=== PATIENT | female | born 1950 | race Caucasian/White ===

== ENCOUNTER 2021-06-30 06:43 | Day surgery (SDC) | payer MEDICARE, SELFPAY ==
[2021-06-17 12:31] VITALS: BMI 26.6
[2021-06-30 10:15] VITALS: BP 115/67; PULSE 95; RESP 16; TEMP 36.6; O2SAT 97; BMI 25.7
--- NOTE | 2021-06-30 10:19 | PM.HPGS ---
History of Present Illness History of Present Illness Consent: Risks, benefits, and alternatives have been discussed and questions answered. Patient agrees to proceed with procedure. Chief complaint: hx of colon polyps Narrative: Magalie Irizarry is a 71 year old female here for colon cancer screening. She has a history of having had multiple polyps. She had 7 in 2014 and apparently 1 was not completely removed. Review of Systems Review of Systems: All systems reviewed & are unremarkable except as noted in HPI and below PMFSH Past Medical History Medical History Arthritis Osteoporosis Thyroid disorder Surgical History Surgical History Breast implant status 1979 Cataract 2020 Deficient knowledge of hysterectomy 1989 H/O section 1975 H/O foot surgery H/O wrist surgery 2015 Family History Family History Mother Carcinoma of colon Diabetes mellitus Heart disease Other Family history of arthritis Family history of cardiovascular disease Family history of malignant neoplasm Social History Social History Smoking status: Former smoker Second hand tobacco smoke exposure: No Alcohol intake: current Substance use: former Substance use type: does not use and marijuana Living arrangements: alone Gender identity (if verbalized by the patient): Female Spiritual care concerns: No Agree to blood products: Yes Meds Home Medications and Allergies Home Medications Medication Instructions Recorded Confirmed Type folic acid 1 mg tablet 1 mg PO DAILY 05/10/21 06/30/21 History hydroxychloroquine 200 mg tablet 200 mg PO BID 05/10/21 06/30/21 History meloxicam 15 mg tablet 15 mg PO DAILY 05/10/21 06/30/21 History methotrexate sodium 2.5 mg tablet 2.5 mg PO WEEKLY 05/10/21 06/30/21 History risedronate 150 mg tablet 150 mg PO MONTHLY 05/10/21 06/30/21 History sulfasalazine 500 mg tablet 1 g PO BID tablet 05/10/21 06/30/21 History allopurinol 300 mg tablet 300 mg PO DAILY #90 tablet 06/24/21 06/30/21 Rx levothyroxine 150 mcg tablet 150 mcg PO DAILY #90 tablet 06/24/21 06/30/21 Rx metformin 1,000 mg tablet 1,000 mg PO DAILY 90 Days #90 06/24/21 06/30/21 Rx tablet rosuvastatin 40 mg tablet 40 mg PO DAILY #90 tablet 06/24/21 06/30/21 Rx zolpidem 10 mg tablet 10 mg PO QPM 90 Days #90 tablet 06/24/21 06/30/21 Rx Allergies Allergy/AdvReac Type Severity Reaction Status Date / Time adhesive Allergy Rash Verified 06/30/21 10:14 Vital Signs Vital Signs - 24 hr 06/30/21 10:15 Temperature 36.6 C Pulse Rate 95 Respiratory Rate 16 Blood Pressure 115/67 Pulse Oximetry 97 Exam Resp: Auscultation: clear to auscultation bilaterally Cardio: Rate: regular rate Rhythm: regular rhythm GI: GI Palp: Yes Soft to palpation and No Tenderness to palpation present (GI) Assessment and Plan Assessment and plan (1) Colon cancer screening: Code(s): Z12.11 - Encounter for screening for malignant neoplasm of colon Status: Acute Assessment and Plan: Colonoscopy with possible biopsy or polypectomy or cautery or injection of substances.
[2021-06-30] MEDS: LACTATED RINGERS 1,000 ML 150 ML IV CONT (10:28)
[2021-06-30 10:30] LABS: Glucose Point of Care 106 mg/dl (65-105)
--- NOTE | 2021-06-30 10:30 | WPDANESEPPF ---
Anes - Initial Pre Proc Eval Procedure: Operation Date: 06/30/21 11:00 Proposed Procedures p Screening Colonoscopy - Kvng Del Rio MD Date/Time: 06/30/21 10:30 Surgeon: Kvng Del Rio MD Pre Op Diagnosis: hx of colon polyps Patient Data Age: 71 Gender: F Height: 1.52 m Weight: 59.8 kg Last Vital Signs Temp 36.6 C 06/30/21 10:15 Pulse 95 06/30/21 10:15 Resp 16 06/30/21 10:15 BP 115/67 06/30/21 10:15 Pulse Ox 97 06/30/21 10:15 Allergies Allergy/AdvReac Type Severity Reaction Status Date / Time adhesive Allergy Rash Verified 06/30/21 10:14 Home Medications Medication Instructions Recorded Confirmed Type folic acid 1 mg tablet 1 mg PO DAILY 05/10/21 06/30/21 History hydroxychloroquine 200 mg tablet 200 mg PO BID 05/10/21 06/30/21 History meloxicam 15 mg tablet 15 mg PO DAILY 05/10/21 06/30/21 History methotrexate sodium 2.5 mg tablet 2.5 mg PO WEEKLY 05/10/21 06/30/21 History risedronate 150 mg tablet 150 mg PO MONTHLY 05/10/21 06/30/21 History sulfasalazine 500 mg tablet 1 g PO BID tablet 05/10/21 06/30/21 History allopurinol 300 mg tablet 300 mg PO DAILY #90 tablet 06/24/21 06/30/21 Rx levothyroxine 150 mcg tablet 150 mcg PO DAILY #90 tablet 06/24/21 06/30/21 Rx metformin 1,000 mg tablet 1,000 mg PO DAILY 90 Days #90 06/24/21 06/30/21 Rx tablet rosuvastatin 40 mg tablet 40 mg PO DAILY #90 tablet 06/24/21 06/30/21 Rx zolpidem 10 mg tablet 10 mg PO QPM 90 Days #90 tablet 06/24/21 06/30/21 Rx Laboratory Tests 06/30/21 10:27 POC Capillary Glucose Pending Patient hx anesthesia problems: none Family hx anesthesia problems: none PMFSH Past Medical History Medical History Arthritis Osteoporosis Thyroid disorder Surgical History Surgical History Breast implant status 1979 Cataract 2020 Deficient knowledge of hysterectomy 1989 H/O section 1975 H/O foot surgery H/O wrist surgery 2015 Family History Family History Mother Carcinoma of colon Diabetes mellitus Heart disease Other Family history of arthritis Family history of cardiovascular disease Family history of malignant neoplasm Social History Social History Smoking status: Former smoker Second hand tobacco smoke exposure: No Alcohol intake: current Substance use: former Substance use type: does not use and marijuana Living arrangements: alone Gender identity (if verbalized by the patient): Female Spiritual care concerns: No Agree to blood products: Yes Anes - Eval Final PreProcedure Day of Procedure 06/30/21 10:30 Patient weight: overweight Heart: regular rate and rhythm Lungs: clear to auscultation Airway: Mallampati scale class II Neurological: alert and oriented Last oral intake: >/= 8 hours ASA classification: III Emergent: no Anesthetic plan: proceed Anesthesia type and monitoring: general GIVS and standard monitoring Informed Consent: The patient's anesthetic plan and its attendant risks and benefits were discussed with the patient/family/POA. Questions were solicited and answers provided to the satisfaction of the patient/family/POA.
[2021-06-30 11:24] VITALS: BP 107/52; PULSE 66; RESP 21; O2SAT 99
[2021-06-30 11:34] VITALS: BP 109/62; PULSE 68; RESP 21; O2SAT 99
[2021-06-30 11:44] VITALS: BP 111/57; PULSE 62; RESP 21; O2SAT 100
== END 2021-06-30 11:56 | disposition home or self-care (01) ==
PROVIDERS: PCP Family Medicine; Visit Provider Internal Medicine Gastroenterology
PROC: 0DJD8ZZ Inspection of Lower Intestinal Tract, Via Natural or Artificial Opening Endoscopic (ICD-10-PCS; CPT 45378; principal; 2021-06-30 11:00)
DX: Z12.11 Encounter for screening for malignant neoplasm of colon (principal); D12.3 Benign neoplasm of transverse colon; K63.5 Polyp of colon; E07.9 Disorder of thyroid, unspecified; M81.0 Age-related osteoporosis without current pathological fracture; Z87.891 Personal history of nicotine dependence; Z79.84 Long term (current) use of oral hypoglycemic drugs
CPT/HCPCS: 45385; 45380; 45381; 82948; 88305; J2704; J7120

== ENCOUNTER 2022-12-20 11:38 | Outpatient (CLI) | payer MEDICARE, SELFPAY ==
--- NOTE | ~2022-12-20 | XR_ITS ---
EXAM: XR hand LT min 3V, XR hand RT min 3V DATE: 12/20/2022 12:10 HISTORY: Rheumatoid arthritis involving both hands w negative rheumat . COMPARISON: Right wrist 04/17/2013, left hand 04/19/2011. FINDINGS: Decreased mineralization. Bilateral ulnar negative variance. Scattered joint space narrowi ng, subchondral sclerosis, and osteophytosis, severe in the right trapeziometacarpal joint and left t hird MCP joint, with milder changes involving the interphalangeal joints of the thumbs and fingers an d the bilateral triscaphe joints. No erosion. No subluxations. No periosteal change. No abnormal soft tissue calcification. IMPRESSION: Polyarticular osteoarthritic change. No definite radiographic evidence of inflammatory ar thropathy. Reviewed, dictated and finalized at location K. LUTION EXPERT IMPRESSION: Polyarticular osteoarthritic change. No definite radiographic evide nce of inflammatory arthropathy.
== END 2022-12-20 11:39 | disposition home or self-care (01) ==
LOC: ANHIMG 11:51
PROVIDERS: PCP Family Medicine; Visit Provider Physician Assistant Medical
DX: M06.041 Rheumatoid arthritis without rheumatoid factor, right hand (principal); M06.042 Rheumatoid arthritis without rheumatoid factor, left hand; Z79.899 Other long term (current) drug therapy; M19.041 Primary osteoarthritis, right hand; M19.042 Primary osteoarthritis, left hand
CPT/HCPCS: 73130

== ENCOUNTER 2022-12-28 11:05 | Outpatient (CLI) | payer MEDICARE, SELFPAY ==
--- NOTE | ~2022-12-28 | US_ITS ---
EXAMINATION: US soft tissue head and neck DATE: 12/28/2022 12:46 INDICATION: Right posterior neck mass. TECHNIQUE: Multiple grayscale and Doppler ultrasound images of the neck were obtained. COMPARISON: None FINDINGS: There is no abnormal mass or lymphadenopathy in the patient's area of concern in the right posterior neck. IMPRESSION: 1. No abnormality in the patient's area of concern in the right posterior neck. Reviewed, dictated and finalized at location A. ONAL INJURY SPECIALIST
== END 2022-12-28 11:06 | disposition home or self-care (01) ==
PROVIDERS: PCP Family Medicine; Visit Provider Physician Assistant Medical
DX: R22.1 Localized swelling, mass and lump, neck (principal)
CPT/HCPCS: 76536

== ENCOUNTER → 2023-01-23 13:38 | Outpatient (CLI) | payer MEDICARE, SELFPAY ==
--- NOTE | ~2023-01-23 | CT_ITS ---
EXAMINATION: CT soft tissue neck wo con DATE: 01/23/2023 13:52 INDICATION: Right neck mass. TECHNIQUE: Computed tomography (CT) of the neck was performed without intravenous contrast. Automated exposure control and iterative reconstruction technique were employed. The dose-length product was 3 67.47 mGy-cm. COMPARISON: Ultrasound 12/28/2022 FINDINGS: There is a 4 mm nodule in left lung upper lobe, likely benign. There are likely changes of ocular lens replacement surgeries. There are no pathologically enlarged lymph nodes. There are change s of right hemithyroidectomy. There are coarse calcifications in left thyroid lobe. There is severe c ervical spondylosis. There is severe osteoarthritis and hypertrophy of the right C3-C4 facet joint. T here is a skin marker overlying this area. IMPRESSION: 1. Severe hypertrophy of the right C3-C4 facet joint in the patient's area of concern. Reviewed, dictated and finalized at location A. ATOR SPECIALIST COMMUNICATIONS IMPRESSION: 1. Severe hypertrophy of the right C3-C4 facet joint in the patient's area of c oncern.
== END ==
PROVIDERS: PCP Family Medicine; Visit Provider Nurse Practitioner Family
DX: R22.0 Localized swelling, mass and lump, head (principal); R22.1 Localized swelling, mass and lump, neck
CPT/HCPCS: 70490

== ENCOUNTER → 2023-06-16 09:26 | Outpatient (CLI) | payer MEDICARE, BC, SELFPAY ==
--- NOTE | ~2023-06-16 | MR_ITS ---
EXAMINATION: MR lower leg RT wo con DATE: 06/16/2023 10:09 INDICATION: Right lower leg pain TECHNIQUE: Magnetic resonance imaging (MRI) of the right lower leg was performed without intravenous contrast. Sequences included axial, sagittal and coronal T1-weighted FSE and fluid sensitive FSE STIR . COMPARISON: Radiographs dated 06/01/2023 FINDINGS: Nondisplaced fracture potentially a stress fracture at the distal diaphysis of the right fibula with marrow edema surrounding the linear low signal intensity fracture line, small amount of periosteal re action along the anterior cortex and additional edema in the surrounding soft tissues. There is mild subarticular edema-like signal change associated with severe osteoarthritis in the medial compartment s of both knees. Bone marrow signal is otherwise normal throughout. Additional moderate osteoarthriti s at the right ankle with surrounding loose osteochondral bodies and hypertrophic osteophytes. Modera te fatty atrophy of the tibialis posterior muscle belly. Remaining musculature of the bilateral calve s appears normal and symmetric. IMPRESSION: 1. Nondisplaced distal diaphyseal fracture of the right fibula potentially a still incomplete stress fracture. 2. 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 3. Moderate fatty atrophy of the right tibialis posterior muscle, likely sequela of chronic insult. Reviewed, dictated and finalized at location A. IMPRESSION: 1. Nondisplaced distal diaphyseal fracture of the right fibula potentially a st ill incomplete stress fracture. 2. 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 3. Moderate fatty atrophy of the right tibialis posterior muscle, likely sequel a of chronic insult.
== END ==
PROVIDERS: PCP Family Medicine; Visit Provider Nurse Practitioner Family
DX: S89.301A Unspecified physeal fracture of lower end of right fibula, initial encounter for closed fracture (principal); M19.071 Primary osteoarthritis, right ankle and foot; M17.0 Bilateral primary osteoarthritis of knee; X58.XXXA Exposure to other specified factors, initial encounter
CPT/HCPCS: 73718

== ENCOUNTER 2023-09-27 02:46 | Day surgery (SDC) | payer MEDICARE, BC, SELFPAY ==
[2023-09-18 14:07] VITALS: BMI 23.1
--- NOTE | 2023-09-25 09:23 | SUR.PREOP ---
Patient called regarding upcoming procedure. Reviewed preop instructions, appointment times, and procedure prep.
[2023-09-27 11:04] VITALS: BP 120/88; PULSE 97; RESP 20; TEMP 36.3; O2SAT 99; BMI 22.3
[2023-09-27 11:20] LABS: Glucose Point of Care 59 mg/dl (65-105)
[2023-09-27] MEDS: LACTATED RINGERS 1,000 ML 150 ML IV CONT (11:22)
[2023-09-27] MEDS: DEXTROSE 50% 25 GM/50 ML SYRINGE IV PUSH (11:23)
--- NOTE | 2023-09-27 11:24 | PM.HPGS ---
History of Present Illness History of Present Illness Consent: Risks, benefits, and alternatives have been discussed and questions answered. Patient agrees to proceed with procedure. Chief complaint: Hx of colon polyp Narrative: Magalie Irizarry is a 73 year old female Here for colon cancer screening. A little over 2 years ago she had several adenomatous polyps removed. Review of Systems Review of Systems: All systems reviewed & are unremarkable except as noted in HPI and below PMFSH Past Medical History Medical History Acute sinusitis Arthritis Osteoporosis Thyroid disorder Surgical History Surgical History Breast implant status 1979 Cataract 2020 Deficient knowledge of hysterectomy 1989 H/O section 1975 H/O foot surgery H/O wrist surgery 2015 Family History Family History Mother Carcinoma of colon Diabetes mellitus Heart disease Hypertension Cerebrovascular accident Father Depression Other Family history of arthritis Family history of cardiovascular disease Family history of malignant neoplasm Social History Social History Smoking packs per day: 1 Smoking cigarettes per day: 20.0 Years smoked: 20 Smoking pack-years: 20.00 Smoking status: Former smoker Second hand tobacco smoke exposure: No Alcohol intake: never Substance use: never Substance use type: does not use Living arrangements: with family Occupation/Education: retired Gender identity (if verbalized by the patient): Female Spiritual care concerns: No Agree to blood products: Yes Meds Home Medications and Allergies Home Medications Medication Instructions Recorded Confirmed Type folic acid 1 mg tablet 1 mg PO DAILY 05/10/21 09/18/23 History hydroxychloroquine 200 mg tablet 200 mg PO BID 05/10/21 09/18/23 History meloxicam 15 mg tablet 15 mg PO DAILY 05/10/21 09/18/23 History methotrexate sodium 2.5 mg tablet 2.5 mg PO WEEKLY 05/10/21 09/18/23 History risedronate 150 mg tablet 150 mg PO MONTHLY 05/10/21 09/18/23 History allopurinol 300 mg tablet 300 mg PO DAILY #90 tabs 01/12/23 09/18/23 Rx metformin 1,000 mg tablet 500 mg PO DAILY #45 tabs 01/12/23 09/18/23 Rx levothyroxine 112 mcg tablet 112 mcg PO DAILY #90 tabs 08/15/23 09/18/23 Rx rosuvastatin 40 mg tablet (Crestor) 40 mg PO DAILY #90 tabs 08/31/23 09/18/23 Rx zolpidem 10 mg tablet 10 mg PO QHS PRN insomnia #90 tabs 08/31/23 09/18/23 Rx benzonatate 100 mg capsule 100 mg PO TID PRN cough #30 caps 09/20/23 09/27/23 Rx doxycycline hyclate 100 mg tablet 100 mg PO BID #20 tabs 09/20/23 09/27/23 Rx methylprednisolone 4 mg tablets in See Rx Instructions PO PER PKG DIR 09/20/23 09/20/23 Rx a dose pack (Medrol (Erlin)) #21 ea Allergies Allergy/AdvReac Type Severity Reaction Status Date / Time adhesive Allergy Rash Verified 09/27/23 11:02 Vital Signs Vital Signs - 24 hr 09/27/23 11:04 Temperature 36.3 C L Pulse Rate 97 Respiratory Rate 20 Blood Pressure 120/88 Pulse Oximetry 99 Oxygen Delivery Room Air Exam Const: General: alert Orientation/consciousness: patient oriented x3 Resp: Auscultation: clear to auscultation bilaterally Cardio: Rhythm: regular rhythm GI: GI Palp: Yes Soft to palpation and No Tenderness to palpation present (GI) Neuro: General: patient oriented x3 Assessment and Plan Assessment and plan (1) Colon cancer screening: Code(s): Z12.11 - Encounter for screening for malignant neoplasm of colon Status: Acute Assessment and Plan: Colonoscopy with possible biopsy or polypectomy or cautery or injection of substances.
--- NOTE | 2023-09-27 11:28 | WPDANESEPPF ---
Anes - Initial Pre Proc Eval Procedure: Operation Date: 09/27/23 13:00 Proposed Procedures p Colonoscopy - Kvng Del Rio MD Date/Time: 09/27/23 11:28 Surgeon: Kvng Del Rio MD Pre Op Diagnosis: Hx of colon polyp Patient Data Age: 73 Gender: F Height: 1.5 m Weight: 50.2 kg Last Vital Signs Temp 97.3 F L 09/27/23 11:04 Pulse 97 09/27/23 11:04 Resp 20 09/27/23 11:04 BP 120/88 09/27/23 11:04 Pulse Ox 99 09/27/23 11:04 O2 Del Method Room Air 09/27/23 11:04 Allergies Allergy/AdvReac Type Severity Reaction Status Date / Time adhesive Allergy Rash Verified 09/27/23 11:02 Home Medications Medication Instructions Recorded Confirmed Type folic acid 1 mg tablet 1 mg PO DAILY 05/10/21 09/18/23 History hydroxychloroquine 200 mg tablet 200 mg PO BID 05/10/21 09/18/23 History meloxicam 15 mg tablet 15 mg PO DAILY 05/10/21 09/18/23 History methotrexate sodium 2.5 mg tablet 2.5 mg PO WEEKLY 05/10/21 09/18/23 History risedronate 150 mg tablet 150 mg PO MONTHLY 05/10/21 09/18/23 History allopurinol 300 mg tablet 300 mg PO DAILY #90 tabs 01/12/23 09/18/23 Rx metformin 1,000 mg tablet 500 mg PO DAILY #45 tabs 01/12/23 09/18/23 Rx levothyroxine 112 mcg tablet 112 mcg PO DAILY #90 tabs 08/15/23 09/18/23 Rx rosuvastatin 40 mg tablet (Crestor) 40 mg PO DAILY #90 tabs 08/31/23 09/18/23 Rx zolpidem 10 mg tablet 10 mg PO QHS PRN insomnia #90 tabs 08/31/23 09/18/23 Rx benzonatate 100 mg capsule 100 mg PO TID PRN cough #30 caps 09/20/23 09/27/23 Rx doxycycline hyclate 100 mg tablet 100 mg PO BID #20 tabs 09/20/23 09/27/23 Rx methylprednisolone 4 mg tablets in See Rx Instructions PO PER PKG DIR 09/20/23 09/20/23 Rx a dose pack (Medrol (Erlin)) #21 ea Laboratory Tests 09/27/23 11:16 POC Capillary Glucose 59 L* mg/dl (65-105) Patient hx anesthesia problems: none Family hx anesthesia problems: none Results Review: All pre-operative results and documents have been reviewed as part of the pre-operative evaluation. [facility] Past Medical History Medical History Acute sinusitis Arthritis Osteoporosis Thyroid disorder Surgical History Surgical History Breast implant status 1979 Cataract 2020 Deficient knowledge of hysterectomy 1989 H/O section 1975 H/O foot surgery H/O wrist surgery 2015 Family History Family History Mother Carcinoma of colon Diabetes mellitus Heart disease Hypertension Cerebrovascular accident Father Depression Other Family history of arthritis Family history of cardiovascular disease Family history of malignant neoplasm Social History Social History Smoking packs per day: 1 Smoking cigarettes per day: 20.0 Years smoked: 20 Smoking pack-years: 20.00 Smoking status: Former smoker Second hand tobacco smoke exposure: No Alcohol intake: never Substance use: never Substance use type: does not use Living arrangements: with family Occupation/Education: retired Gender identity (if verbalized by the patient): Female Spiritual care concerns: No Agree to blood products: Yes Anes - Eval Final PreProcedure Day of Procedure 09/27/23 11:28 Patient weight: normal Heart: regular rate and rhythm Lungs: clear to auscultation Airway: Mallampati scale class II Neurological: alert and oriented Last oral intake: >/= 8 hours ASA classification: III Emergent: no Anesthetic plan: proceed Anesthesia type and monitoring: general GIVS and standard monitoring Results Review: All pre-operative results and documents have been reviewed as part of the pre-operative evaluation. Informed Consent: The patient's anesthetic plan and its attendant risks and benefits were discussed with the patient/family/POA. Qu
--- NOTE | 2023-09-27 12:00 | SUR.OPER ---
1200: REPEAT BLOOD SUGAR 132
--- NOTE | 2023-09-27 12:03 | SUR.PREOP ---
1117-pt blood sugar reading 59. pt asymptomatic. MD Saleh notified. new orders received and given. will reasses.
[2023-09-27 12:05] LABS: Glucose Point of Care 132 mg/dl (65-105)
[2023-09-27 12:10] VITALS: BP 96/56; PULSE 74; RESP 23; O2SAT 96
[2023-09-27 12:20] VITALS: BP 104/61; PULSE 60; RESP 17; O2SAT 100
[2023-09-27 12:30] VITALS: BP 125/66; PULSE 53; RESP 15; O2SAT 100
== END 2023-09-27 12:42 | disposition home or self-care (01) ==
PROVIDERS: PCP Family Medicine; Visit Provider Internal Medicine Gastroenterology
PROC: 0DJD8ZZ Inspection of Lower Intestinal Tract, Via Natural or Artificial Opening Endoscopic (ICD-10-PCS; CPT 45378; principal; 2023-09-27 13:00)
DX: Z12.11 Encounter for screening for malignant neoplasm of colon (principal); K64.8 Other hemorrhoids; K57.30 Diverticulosis of large intestine without perforation or abscess without bleeding; Z86.010 Personal history of colon polyps; M81.0 Age-related osteoporosis without current pathological fracture; E07.9 Disorder of thyroid, unspecified; Z87.891 Personal history of nicotine dependence; Z79.84 Long term (current) use of oral hypoglycemic drugs
CPT/HCPCS: G0105; 82948; J2704; J7120

== ENCOUNTER → 2023-11-02 13:08 | Outpatient (CLI) | payer MEDICARE, BC, SELFPAY ==
--- NOTE | ~2023-11-02 | MM_ITS ---
EXAMINATION: MM scrn fili implant BI w yovani HISTORY: Screening mammogram TECHNIQUE: Craniocaudal and mediolateral oblique 3-D tomosynthesis images with implant displacement a nd synthetic 2-D images were generated. Craniocaudal and mediolateral oblique views of the breasts wi thout implant displacement were obtained using full field digital mammography. CAD analysis was submi tted and interpreted. COMPARISON: No prior mammogram is available for comparison at this institution. BREAST PARENCHYMAL COMPOSITION: There are scattered areas of fibroglandular density. FINDINGS: There are bilateral subglandular silicone implants. There is no evidence of suspicious mass , calcification, or architectural distortion to suggest malignancy in either breast. There has been n o suspicious interval change. IMPRESSION: 1. No mammographic evidence of malignancy. 2. Recommend routine screening mammography in one year. BI-RADS Category 1: Negative Reviewed, dictated and finalized at location A. ODS AND PROCEDURES ANALYST
== END ==
PROVIDERS: PCP Nurse Practitioner Family; Visit Provider Nurse Practitioner Family
DX: Z12.31 Encounter for screening mammogram for malignant neoplasm of breast (principal)
CPT/HCPCS: 77063; 77067

== ENCOUNTER 2025-03-05 11:35 | Outpatient (CLI) | payer MEDICARE, SELFPAY ==
--- NOTE | ~2025-03-05 | MM_ITS ---
EXAMINATION: MM scrn fili implant BI w yovani HISTORY: Screening mammogram TECHNIQUE: Craniocaudal and mediolateral oblique 3-D tomosynthesis images with implant displacement a nd synthetic 2-D images were generated. Craniocaudal and mediolateral oblique views of the breasts wi thout implant displacement were obtained using full field digital mammography. CAD analysis was submi tted and interpreted. COMPARISON: 11/02/2023 BREAST PARENCHYMAL COMPOSITION: Not dense: There are scattered areas of fibroglandular density. FINDINGS: There is no evidence of suspicious mass, calcification, or architectural distortion to sugg est malignancy in either breast. There has been no suspicious interval change. IMPRESSION: 1. No mammographic evidence of malignancy. 2. Recommend routine screening mammography in one year. BI-RADS Category 1: Negative Reviewed, dictated and finalized at location B.
--- NOTE | ~2025-03-05 | DEXA_ITS ---
Bone Density Report Name: SABRINA MORIN Age: 74 Sex: Female Ethnicity: White Date of : 1950 Indication: postmenopausal; screening for osteoporosis; height loss; hysterectomy; Referring Provider: CIARAN MUHAMMAD Study: Bone densitometry was performed. Exam Date: March 05, 2025 Accession number: [id number] Bone Density: Region BMD T-score Z-score Classification AP Spine(L1-L4) 0.931 -1.1 1.3 Osteopenia Femoral Neck (Left) 0.593 -2.3 -0.3 Osteopenia Total Hip (Left) 0.672 -2.2 -0.5 Osteopenia Femoral Neck (Right) 0.471 -3.4 -1.4 Osteoporosis Total Hip (Right) 0.509 -3.5 -1.8 Osteoporosis Femoral Neck Mean 0.532 -2.9 -0.8 Osteoporosis Total Hip Mean 0.591 -2.9 -1.2 Osteoporosis World Health Organization criteria for BMD impression classify patients as: Normal (T-score at or above -1.0), Osteopenia (T-score between -1.0 and -2.5), or Osteoporosis (T-score at or below -2.5). Clinical Information Provided by Patient: Has used the following medications: Actonel (i.e. risedronate), Vitamin D Has the following medical conditions: Hysterectomy Patient maximum height was 59.6 Menopause Age: 41 No regular weight bearing exercise Does not regularly consume dairy products Drinks caffeinated beverages Onset of menses at age 13 Number of children 2 Impression: The patient has osteoporosis, based on the Right Total Hip T-score. Discussion: INCREASED RISK OF FRACTURE. BONE DENSITY IS UNDESIRABLY LOW AT ONE OR MORE SKELETAL SITES, CONSISTENT WITH POSTMENOPAUSAL OSTEOPOROSIS. This patient's lowest T-score meets the World Health Organization's (WHO) criteria for osteoporosis at one or more sites (T-score -2.5 or below). In untreated patients, the risk of osteoporotic fracture increases approximately two-fold for each 1.0 SD decrease in T-score. Low bone density is not the only risk factor for fracture; also consider factors such as patient's age, frailty or poor health, risk of falling, risk of injury, previous osteoporotic fracture, family history of osteoporosis, cigarette smoking, low body weight, etc. Not everyone with low bone mineral density has osteoporosis; osteomalacia and other metabolic bone disorders should also be considered. Patients who have osteoporosis should be evaluated for specific diseases and conditions (secondary causes) that may cause or contribute to bone loss. The [place] Association of Clinical Endocrinologists (AACE) and National Osteoporosis Foundation (NOF) recommend pharmacologic intervention for all postmenopausal women whose T-score is in this range. The patient should follow a healthful lifestyle (good nutrition with adequate calcium and vitamin D, and appropriate weight-bearing exercise). Follow-Up: Consider a repeat BMD and Vertebral Fracture Assessment (VFA) exam in 2 years or sooner if medically necessary, to reassess this patient's status. Reported by: CARLTON on 03/05/2025 12:16:00 PM. Reviewed, dictated and finalized at location A.
--- OUTSIDE RECORDS SUMMARY | 2025-03-05 12:58 | XMS_ITS | Referral Summary ---
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 Name Role Phone Anthony Coffman MD Primary Care Provider [phone] Jonathan Zheng MD Unavailable [phone] Allergies Active Allergy Reactions Criticality Noted Date Comments Adhesive Rash Medium 10/03/2019 Medications zolpidem (AMBIEN) 10 mg tablet take 1 tablet by oral route every day at bedtime 0 0 08/04/20 15 Active levothyroxine (SYNTHROID) 150 mcg tablet Take 150 mcg by mouth every other day Active levothyroxine (SYNTHROID) 137 mcg tablet Take 137 mcg by mouth every other day Take on days when not taking levothyroxine 150mcg Active rosuvastatin (CRESTOR) 40 mg tablet Take 40 mg by mouth nightly Active allopurinol (ZYLOPRIM) 300 mg tablet Take 300 mg by mouth every morning Active metFORMIN (GLUCOPHAGE) 1,000 mg tablet Take 1,000 mg by mouth nightly Active folic acid (FOLVITE) 1 mg tablet Take 2 tablets (2,000 mcg total) by mouth daily 180 tablet 1 08/24/20 23 Active risedronate (ACTONEL) 150 mg tabletIndication s:Post-Menopausa l Osteoporosis Take 1 tablet (150 mg total) by mouth every 30 (thirty) days with water on empty stomach, nothing by mouth or lie down for next 30 minutes. 3 tablet 3 06/27/20 24 Active meloxicam (MOBIC) 15 mg tablet TAKE 1 TABLET BY MOUTH EVERY DAY 90 tablet 1 09/23/20 24 Active Active Problems Problem Noted Date Diagnosed Date Acute pain of left shoulder 11/27/2023 Assessment & Plan (11/27/2023 11:00 AM BRAND AD[employer]OCATE): L shoulder pain intermittently. Has full range of motion on exam and neg rotator cuff testing. Discussed PT, could try in the future if worse Neck mass 12/12/2022 Assessment & Plan (12/12/2022 11:13 AM BRAND ADVOCATE): A 1 cm soft sq nodule rt upper post neck x 1month, suspect a lymph node. Will get neck US. Pt to call 2 d after US so we can get results. Age-related osteoporosis wit hout current pathological fracture 11/26/2019 Overview (05/05/2022): BMD 07/08: R femoral neck -2.4 L femoral neck -2.2 Spine -1.5 FRAX 16, 3.7 Trying to start Prolia. Pt preferred oral med first, restarted actonel monthly BMD 05/11: lumbar spine (-1.0) suspect falsely elevated due to djd. L femoral neck -2.3 Assessment & Plan (05/31/2024 12:55 PM CDT): BMD 07/08: R femoral neck -2.4 L femoral neck -2.2 Spine -1.5 FRAX 16, 3.7 Discussed Prolia. Pt took a year of oral bisphsphonate in the past and would prefer to try this again before going to injectable therapy. On monthly actonel. BMD 05/11: lumbar spine (-1.0) suspect falsely elevated due to djd. L femoral neck -2.3 Will continue actonel until next BMD in 05/13, she has order from PCP to do BMD soon. If stable/improved could consider drug holiday. Assessment & Plan (03/01/2024 10:40 AM CDT): BMD 07/08: R femoral neck -2.4 L femoral neck -2.2 Spine -1.5 FRAX 16, 3.7 Discussed Prolia. Pt took a year of oral bisphsphonate in the past and would prefer to try this again before going to injectable therapy. On monthly actonel. BMD 05/11: lumbar spine (-1.0) suspect falsely elevated due to djd. L femoral neck -2.3 Will continue actonel until next BMD in 05/13, then will consider drug holiday (4 years of bisphosphonate) Assessment & Plan (11/27/2023 10:32 AM BRAND ADVOCATE): BMD 07/08: R femoral neck -2.4 L femoral neck -2.2 Spine -1.5 FRAX 16, 3.7 Discussed Prolia. Pt took a year of oral bisphsphonate in the past and would prefer to try this again before going to injectable therapy. On monthly actonel. BMD 05/11: lumbar spine (-1.0) suspect falsely elevated due to djd. L femoral neck -2.3 Will continue actonel until next BMD in 05/13, then will consider drug holiday (4 years of bisphosphonate) Assessment & Plan (08/24/2023 12:43 PM CDT): BMD 07/08: R femoral neck -2.4 L femoral neck -2.2 Spine -1.5 FRAX 16, 3.7 Discussed Prolia. Pt took a year of oral bisphsphonate in the past and would prefer to try this again before going to injectable therapy. On monthly actonel. BMD 05/11: lumbar spine (-1.0) suspect falsely elevated due to djd. L femoral neck -2.3 Will continue actonel until next BMD in 05/13, then will consider drug holiday (4 years of bisphosphonate) Assessment & Plan (03/13/2023 10:51 AM CDT): BMD 07/08: R femoral neck -2.4 L femoral neck -2.2 Spine -1.5 FRAX 16, 3.7 Discussed Prolia. Pt took a year of oral bisphsphonate in the past and would prefer to try this again before going to injectable therapy. On monthly actonel. BMD 05/11: lumbar spine (-1.0) suspect falsely elevated due to djd. L femoral neck -2.3 Will continue actonel for now. Repeat BMD in 05/13 Assessment & Plan (12/12/2022 8:31 AM BR[employer] ADVOCATE): BMD 07/08: R femoral neck -2.4 L femoral neck -2.2 Spine -1.5 FRAX 16, 3.7 Discussed Prolia. Pt took a year of oral bisphsphonate in the past and would prefer to try this again before going to injectable therapy. On monthly actonel. BMD 05/11: lumbar spine (-1.0) suspect falsely elevated due to djd. L femoral neck -2.3 Will continue actonel for now. Repeat BMD in 05/13 Assessment & Plan (09/16/2022 10:48 AM CDT): BMD 07/08: R femoral neck -2.4 L femoral neck -2.2 Spine -1.5 FRAX 16, 3.7 Discussed Prolia. Pt took a year of oral bisphsphonate in the past and would prefer to try this again before going to injectable therapy. On monthly actonel. BMD 05/11: lumbar spine (-1.0) suspect falsely elevated due to djd. L femoral neck -2.3 Will continue actonel for now. Repeat BMD in 05/13 Assessment & Plan (05/06/2022 10:10 AM CDT): BMD 07/08: R femoral neck -2.4 L femoral neck -2.2 Spine -1.5 FRAX 16, 3.7 Discussed Prolia. Pt took a year of oral bisphsphonate in the past and would prefer to try this again before going to injectable therapy. On monthly actonel. BMD 05/11: lumbar spine (-1.0) suspect falsely elevated due to djd. L femoral neck -2.3 Will continue actonel for now. Repeat BMD in 05/13 Assessment & Plan (01/20/2022 10:13 AM BR[employer]): BMD 8/: R femoral neck -2.4 L femoral neck -2.2 Spine -1.5 FRAX 16, 3.7 Discussed Prolia. Pt took a year of oral bisphsphonate in the past and would prefer to try this again before going to injectable therapy. On monthly actonel. Will repeat BMD Assessment & Plan (09/06/2021 2:53 PM CDT): BMD 8: R femoral neck -2.4 L femoral neck -2.2 Spine -1.5 FRAX 16, 3.7 Discussed Prolia. Pt took a year of oral bisphsphonate in the past and would prefer to try this again before going to injectable therapy. On monthly actonel. Will repeat BMD Assessment & Plan (03/08/2021 10:00 AM CDT): BMD 8: R femoral neck -2.4 L femoral neck -2.2 Spine -1.5 FRAX 16, 3.7 Discussed Prolia. Pt took a year of oral bisphsphonate in the past and would prefer to try this again before going to injectable therapy. On monthly actonel. Assessment & Plan (12/07/2020 10:24 AM BR[employer] AD[employer]): BMD 8: R femoral neck -2.4 L femoral neck -2.2 Spine -1.5 FRAX 16, 3.7 Discussed Prolia. Pt took a year of oral bisphsphonate in the past and would prefer to try this again before going to injectable therapy. On monthly actonel. Assessment & Plan (09/04/2020 5:38 PM CDT): BMD 8: R femoral neck -2.4 L femoral neck -2.2 Spine -1.5 FRAX 16, 3.7 Discussed Prolia. Pt took a year of oral bisphsphonate in the past and would prefer to try this again before going to injectable therapy. On monthly actonel. Assessment & Plan (07/03/2020 9:48 AM CDT): BMD 07/08: R femoral neck -2.4 L femoral neck -2.2 Spine -1.5 FRAX 16, 3.7 Discussed Prolia. Pt took a year of oral bisphsphonate in the past and would prefer to try this again before going to injectable therapy. Script sent for risedronate 150mg monthly. Will check labs today. Pt says she had vit D level [facility] [place] last month. Will look for results. Advised to start daily calcium/D supplement. Assessment & Plan (02/25/2020 1:15 PM CDT): BMD 07/08: R femoral neck -2.4 L femoral neck -2.2 Spine -1.5 FRAX 16, 3.7 Discussed Prolia. Pt took a year of oral bisphsphonate in the past and would prefer to try this again before going to injectable therapy. Script sent for risedronate 150mg monthly. Will check labs today. Pt says she had vit D level [facility] [place] last month. Will look for results. Advised to start daily calcium/D supplement. Assessment & Plan (11/26/2019 11:21 AM BR[employer] AD[employer]ATE): bmd done per pcp several months and ago and pt reports being advised to start Prolia, but insurance denied. Will request report and then can help decide what tx to pursue Trigger middle finger of right hand 06/25/2018 Assessment & Plan (06/25/2018 10:33 AM CDT): R 3,4 fingers. Had one steroid inj several years ago. Discussed injections again if worse. Rheumatoid arthritis involvi ng both hands with negative rheumatoid factor 07/12/2017 Overview (05/31/2024): Images from the original note were not included. Off arava due to diarrhea and aza due to ABD pain. Stopped ssz in 04/11 due to low wbc. Discussed stopping hcq and mtx in 12/13 since doing well. Observing on meloxicam only Does not want IV biologics. Might consider xeljanz in the future. vectra 35 in 04/06. 27 in 05/08 R hand u/s showed (04/06): 1) grade 1 doppler in the wrist 2) marked synovitis in the 2nd mcp, moderate in the 3rd mcp, mild in the 4th mcp Mild increase in synovial thickening since 02/03 R hand u/s 05/08: R hand u/s 02/06: US right hand/wrist 03/13/24: Grade 2 power Doppler of the dorsal wrist Grade 1-2 power Doppler of the radial scaphoid joint Moderate synovial thickening of the 3rd MCPJ Mild synovial thickening of the 4th MCPJ with grade 1 power Doppler Suspected erosion of the 2nd and 5th metacarpal heads Grade 1 power Doppler of the 3rd PIPJ Moderate spurring of the 1st CMC joint Finding are compared to previous exam dated 01/27/23 showing continued power Doppler of the dorsal wrist. Improvement in synovial thickening and power Doppler of the 3rd MCP joint. Stable findings in the 4th MCP joint. New erosions of the 2nd and 5th MCP joints. Increased power Doppler of the 3rd PIPJ. 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 Had been on hcq 300mg daily, 20mg mtx with folic acid 2mg (due to mouth sores); however she stopped the mtx and hcq in 12/13 after hearing her WBC was low again (2.9). Recheck improved slightly (3.2). Also had previously stopped ssz in 04/11 due to lower wbc. This improved after stopping. Her joint symptoms have remained stable. Previously off arava due to diarrhea and aza due to ABD pain. vectra 27 in 05/08 (previously 35) R hand u/s in 02/06 was essentially unchanged compared to previous, demonstrates moderate-marked synovial thickening with grade 1-2 doppler. 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 US right hand/wrist 03/13/24: Grade 2 power Doppler of the dorsal wrist Grade 1-2 power Doppler of the radial scaphoid joint Moderate synovial thickening of the 3rd MCPJ Mild synovial thickening of the 4th MCPJ with grade 1 power Doppler Suspected erosion of the 2nd and 5th metacarpal heads Grade 1 power Doppler of the 3rd PIPJ Moderate spurring of the 1st CMC joint Finding are compared to previous exam dated 01/27/23 showing continued power Doppler of the dorsal wrist. Improvement in synovial thickening and power Doppler of the 3rd MCP joint. Stable findings in the 4th MCP joint. New erosions of the 2nd and 5th MCP joints. Increased power Doppler of the 3rd PIPJ. Discussed that there are some improvements/stability and 2 possible erosions of 2,5 mcp without associated inflammation at those joints. She is still feeling fine and her physical exam displays little synovitis. Prefers to remain off meds longer and observe. She is also planning on having ankle replacement surgery in the fall. Will let us know if she flares before next appt. Continue meloxicam 15mg daily. Labs ordered, may do with PCP soon, f/u 6 months. Assessment & Plan (03/03/2024 10:18 PM CDT): Cdai = 6 Low activity today. Had been on hcq 300mg daily, 20mg mtx with folic acid 2mg (due to mouth sores); however she stopped the mtx and hcq in 12/13 after hearing her WBC was low again (2.9). Recheck improved slightly (3.2). Also had previously stopped ssz in 04/11 due to lower wbc. This improved after stopping. Her joint symptoms have remained stable. Previously off arava due to diarrhea and aza due to ABD pain. vectra 27 in 05/08 (previously 35) R hand u/s in 02/06 was essentially unchanged compared to previous, demonstrates moderate-marked synovial thickening with grade 1-2 doppler. 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 If minimal, then we may observe longer off meds. However, if active inflammation is seen then we may restart methotrexate. May continue meloxicam 15mg daily. Labs today. F/u 3 months Assessment & Plan (11/27/2023 10:56 AM BRAND ADVOC[employer]): Cdai = 4 Low activity today. On hcq 300mg daily, 20mg mtx with folic acid 2mg (due to mouth sores). Stopped ssz in 04/11 due to lower wbc. This improved after stopping. Her joint symptoms have remained stable. Since her CDAI is low and I think most of her joint symptoms are due to OA, we also discussed trying to stop hcq. She can put it on hold for now and see how it goes. Can restart if joints worsen. Previously off arava due to diarrhea and aza due to ABD pain. vectra 27 in 05/08 (previously 35) R hand u/s in 02/06 was essentially unchanged compared to previous, demonstrates moderate-marked synovial thickening with grade 1-2 doppler. 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 F/u 3 months Assessment & Plan (08/24/2023 12:42 PM CDT): Cdai = 6 On hcq 300mg daily, 20mg mtx with folic acid 2mg (due to mouth sores). Stopped ssz in 04/11 due to lower wbc. This improved after stopping. Her joint symptoms have remained stable. Tolerating present meds well. Off arava due to diarrhea and aza due to ABD pain. vectra 27 in 05/08 (previously 35) R hand u/s in 02/06 was essentially unchanged compared to previous, demonstrates moderate-marked synovial thickening with grade 1-2 doppler. 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 May do telehealth visit in 3 months. Labs today. Seen with Dr. Jackson. Assessment & Plan (03/13/2023 11:03 AM CDT): Phone visit today. On hcq 300mg daily and ssz 1gm bid. Continue on 20mg mtx with folic acid 2mg (due to mouth sores). Tolerating present meds well. Off arava due to diarrhea and aza due to ABD pain. schedule rt hand US on same day of next visit in May since pt drives 2 h round trip to get here and it is difficult for her to come in for extra testing. vectra 27 in 05/08 (previously 35) R hand u/s in 02/06 was essentially unchanged compared to previous, demonstrates moderate-marked synovial thickening with grade 1-2 doppler. 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 Utd [id number] and [id number]. Pt requesting to come less often due to 1 hr commute. Phone visit was done today. will do in person visit in 3 months again. Check labs soon at local [facility]. Assessment & Plan (01/02/2023 2:53 PM [employer]AND ADVOC[employer]): Low cdai. On hcq bid and ssz 1gm bid. Due to her low weight will decrease her plaquenil to 300 mg po every day. Again she did not get her eye exam, advised her again to make appt for yearly eye exam due to potential retina toxicity on plaquenil. Continue on 20mg mtx with folic acid 2mg (due to mouth sores). Tolerating present meds well. Off arava due to diarrhea and aza due to ABD pain. Gave pt referral for bilat hand xrays and spoke to Qi Gallardo to have pt schedule rt hand US on same day of visit in 6 months since pt drives 2 h round trip to get here and it is difficult for her to come in for extra testing. vectra 27 in 05/08 (previously 35) R hand u/s in 02/06 was essentially unchanged compared to previous, demonstrates moderate-marked synovial thickening with grade 1-2 doppler. Repeat rt hand US. Doing well clinically will continue current meds. Utd [id number] and [id number]. Pt requesting to come less often due to 1 hr commute. Phone visit was done at last visit due to this; will do phone visit in 3 months again and in person visit in 6 months. Check labs today. Assessment & Plan (09/16/2022 10:49 AM CDT): Telephone visit conducted today. Pt reports doing well since her last visit with no new problems. On hcq bid and ssz 1gm bid. On 20mg mtx with folic acid 2mg due to mouth sores. Tolerating well. Off arava due to diarrhea and aza due to ABD pain. vectra 27 in 05/08 (previously 35) R hand u/s in 02/06 was essentially unchanged compared to previous, demonstrates moderate-marked synovial thickening with grade 1-2 doppler. Doing well clinically will continue current meds. Utd [id number] and . Had both doses of shingrix? Pt requesting to come less often due to 1 hr commute. Phone visit was done today; will do in-person visit next time in 3 months. Pt has a lab order for [facility] and will try to do in the next week or two. Refills of meds sent in today. Assessment & Plan (05/06/2022 11:45 AM CDT): cdai = 2, low Minimal activity in hands. On hcq bid and ssz 1gm bid. On 20mg mtx with folic acid 2mg due to mouth sores. Tolerating well. Off arava due to diarrhea and aza due to ABD pain. vectra 27 in 05/08 (previously 35) R hand u/s in 02/06 was essentially unchanged compared to previous, demonstrates moderate-marked synovial thickening with grade 1-2 doppler. Doing well clinically will continue current meds. Utd [id number] and [id number]. Had both doses of shingrix? Labs ordered today. Pt requesting to come less often due to 1 hr commute. If doing ok, will arrange for telehealth visit at 3 months with labs to be done at local [facility], then next in-person visit and labs in 6 months. Advised if Medicare stops allowing telehealth at some point then we will not be able to do this. Assessment & Plan (01/20/2022 12:56 PM [employer]): cdai = 3, low Minimal activity in hands. On hcq bid and ssz 1gm bid. On 20mg mtx with folic acid 2mg due to mouth sores. Tolerating well. Off arava due to diarrhea and aza due to ABD pain. vectra 27 in 05/08 (previously 35) R hand u/s in 02/06 was essentially unchanged compared to previous, demonstrates moderate-marked synovial thickening with grade 1-2 doppler. Doing well clinically will continue current meds. Advise getting flu shot soon and COVID booster, but patient declines. Utd [id number] and [id number]. Recommend shingrix and patient plans to get 2nd shot soon. Due for BMD, pt plans to schedule soon as well. Continue meds through procedure to removal of lipoma. Hold if she develops any infections. Labs ordered today. F/u 3 months. Assessment & Plan (09/06/2021 2:52 PM CDT): cdai = 3, low Minimal activity in hands. On hcq bid and ssz 1gm bid. On 20mg mtx with folic acid 2mg due to mouth sores. Tolerating well. Off arava due to diarrhea and aza due to ABD pain. vectra 27 in 05/08 (previously 35) R hand u/s in 02/06 was essentially unchanged compared to previous, demonstrates moderate-marked synovial thickening with grade 1-2 doppler. Since doing well clinically will continue current meds. Advise getting flu shot soon and COVID booster. utd and [id number]. Recommend shingrix. Labs ordered today, will go to [facility] near her. F/u 3 months. Assessment & Plan (03/08/2021 10:57 AM CDT): cdai = 3, low Minimal activity in hands. On hcq bid and ssz 1gm bid. On 20mg mtx with folic acid 2mg due to mouth sores. Tolerating well. Off arava due to diarrhea and aza due to ABD pain. vectra 27 in 05/08 (previously 35) R hand u/s in 02/06 was essentially unchanged compared to previous, demonstrates moderate-marked synovial thickening with grade 1-2 doppler. Since doing well clinically will continue current meds. Utd flu shot. utd [id number] and [id number]. Recommend shingrix. Labs today. F/u 3 months. Assessment & Plan (12/07/2020 10:25 AM BRAND [employer]OC[employer]): cdai = , low Mild pain in hands. On hcq bid and ssz 1gm bid. On 20mg mtx with folic acid 2mg due to mouth sores. Tolerating well. Off arava due to diarrhea and aza due to ABD pain. vectra 27 in 05/08 (previously 35) R hand u/s in 02/06 was essentially unchanged compared to previous, demonstrates moderate-marked synovial thickening with grade 1-2 doppler. Discussed biologics/JAKs, pt was considering trying Rinvoq but after discussion she decided she does not feel comfortable starting it right now. Can consider again at a later date. Utd flu shot. utd [id number] and [id number]. Recommend shingrix. Labs today. F/u 3 months. Assessment & Plan (09/04/2020 11:27 AM CDT): cdai = 8, low Mild pain in hands. On hcq bid and ssz 1gm bid. On 20mg mtx with folic acid 2mg due to mouth sores. Tolerating well. Off arava due to diarrhea and aza due to ABD pain. vectra 27 in 05/08 (previously 35) R hand u/s in 02/06 was essentially unchanged compared to previous, demonstrates moderate-marked synovial thickening with grade 1-2 doppler. Discussed biologics/JAKs, pt was considering trying Rinvoq but after discussion she decided she does not feel comfortable starting it right now. Can consider again at a later date. Utd flu shot. utd [id number] and . Recommend shingrix. Labs today. F/u 3 months. Assessment & Plan (07/03/2020 1:14 PM CDT): cdai = 13.5, low-moderate Mild pain in hands. On hcq bid and ssz 1gm bid. On 20mg mtx with folic acid 2mg due to mouth sores. Tolerating well. Off arava due to diarrhea and aza due to ABD pain. vectra 27 in 05/08 (previously 35) R hand u/s in 02/06 was essentially unchanged compared to previous, demonstrates moderate-marked synovial thickening with grade 1-2 doppler. Discussed biologics again and she is willing to try oral ANAID inhibitor, preferred over infusions/injections. We had requested Rinvoq which at first appeared to be approved, then a subsequent letter of denial. Will try to clarify and see if we can get this approved. If she does well on this, we can try to reduce her other oral meds. I gave her a month of Rinvoq samples to start after her upcoming foot surgery. Utd flu shot. utd [id number] and [id number]. Recommend shingrix. Labs today. F/u 2 months. Assessment & Plan (02/25/2020 1:17 PM CDT): cdai = 12, low-moderate Mild pain in hands. On hcq bid and ssz 1gm bid. On 20mg mtx with folic acid 2mg due to mouth sores. Tolerating well. Off arava due to diarrhea and aza due to ABD pain. vectra 27 in 05/08 (previously 35) R hand u/s in 02/06 was essentially unchanged compared to previous, demonstrates moderate-marked synovial thickening with grade 1-2 doppler. Discussed biologics again and she is willing to try oral ANAID inhibitor, preferred over infusions/injections. Will check benefits for xeljanz/rinvoq. Utd flu shot. utd [id number] and [id number]. Recommend shingrix. Labs today. F/u 6 weeks if starting on new med. If denied or delayed may push follow up appt to 3 months. COVID-19 discussed. Assessment & Plan (11/26/2019 11:33 AM BRAND [employer]): cdai = 10 S/p L toe surgery in September and was off some of her meds temporarily. Mild pain in hands. On hcq bid and ssz 1gm bid. On 20mg mtx with folic acid 2mg due to mouth sores. Tolerating well. Off arava due to diarrhea and aza due to ABD pain. vectra 27 in 05/08 (previously 35) R hand u/s in 05/08 shows moderate effusions and doppler; some joints improved and some worse compared to previous u/s. Overall she feels that she is doing well. Discussed that she still has some moderate-marked activity from the ultrasound though by cdai and Vectra measurements she appears to have low activity. However, multiple findings of doppler signals on ultrasound is associated with more progressive disease. Discussed biologics again and she is not opposed to Xeljanz though concerned about cost. Utd flu shot. utd [id number] and . Recommend shingrix. Labs today. Repeat u/s in 2-3 months and if still active disease with doppler then will try for xeljanz. Seen with Dr. Jackson. Assessment & Plan (08/02/2019 8:00 AM CDT): cdai = 13 On hcq bid and ssz 1gm bid. On 20mg mtx with folic acid 2mg due to mouth sores. Tolerating well. Off arava due to diarrhea and aza due to ABD pain. vectra 27 in 05/08 (previously 35) R hand u/s in 05/08 shows moderate effusions and doppler; some joints improved and some worse compared to previous u/s. Overall she feels that she is doing well. Discussed that she still has some moderate-marked activity from the ultrasound so we may want to discuss biologics/xeljanz again. She has previously declined these. Since she is going to have foot surgery in the next couple of months I do not want to change anything yet. Hold meloxicam and ssz 1 week before surgery due to bleeding risk. Will review additional meds more next time. Labs today and f/u 3 months. Utd flu shot. utd and [id number]. Discussed Shingrix and recommended. Had BMD from pcp and will make appt soon to discuss. Assessment & Plan (04/26/2019 11:25 AM CDT): cdai = 6 On hcq bid and ssz 1gm bid. On 20mg mtx with folic acid 2mg due to mouth sores. Tolerating well. Off arava due to diarrhea and aza due to ABD pain. Does not want IV biologics. Might consider xeljanz in the future. vectra 35 in 04/06 R hand u/s (04/06) showed: 1) grade 1 doppler in the wrist 2) marked synovitis in the 2nd mcp, moderate in the 3rd mcp, mild in the 4th mcp Mild increase in synovial thickening since 02/03 Overall she feels that she is doing well. Will recheck R hand u/s and vectra. If worse we may want to discuss biologics/xeljanz again. Labs today and f/u 3 months. Utd flu shot. utd [id number] and [id number]. Discussed Shingrix. Has BMD order from pcp but hasn't done it yet, encouraged to do this. Assessment & Plan (01/24/2019 12:01 PM BRAND ADVOCATE): cdai = 4 On hcq bid and ssz 1gm bid. On 20mg mtx with folic acid 2mg due to mouth sores. Tolerating well. Off arava due to diarrhea and aza due to ABD pain. Does not want IV biologics. Might consider xeljanz in the future. vectra 35 in 04/06 R hand u/s showed: 1) grade 1 doppler in the wrist 2) marked synovitis in the 2nd mcp, moderate in the 3rd mcp, mild in the 4th mcp Mild increase in synovial thickening since 02/03 Overall she feels that she is doing well. Will continue current regimen and observe. Labs today and f/u 3 months. Utd flu shot. utd [id number] and [id number]. Will get BMD with pcp soon. Assessment & Plan (10/23/2018 11:16 AM BRAND ADVOCATE): cdai = 9 On hcq bid and ssz 1gm bid. On 20mg mtx with folic acid 2mg due to mouth sores. Tolerating well. Off arava due to diarrhea and aza due to ABD pain. Does not want IV biologics. Might consider xeljanz in the future. vectra 35 in 04/06 R hand u/s showed: 1) grade 1 doppler in the wrist 2) marked synovitis in the 2nd mcp, moderate in the 3rd mcp, mild in the 4th mcp Mild increase in synovial thickening since 02/03 Will continue current regimen and observe. Labs today and f/u 3 months. Utd flu shot. utd [id number] and [id number]. Assessment & Plan (07/24/2018 12:40 PM CDT): cdai = 20 On hcq bid and ssz 1gm bid. On 20mg mtx with folic acid 2mg due to mouth sores. Tolerating well. Off arava due to diarrhea and aza due to ABD pain. Does not want IV biologics. Might consider xeljanz in the future. vectra 35 in 04/06 R hand u/s showed: 1) grade 1 doppler in the wrist 2) marked synovitis in the 2nd mcp, moderate in the 3rd mcp, mild in the 4th mcp Mild increase in synovial thickening since 02/03 Will continue current regimen and observe. Labs today and f/u 3 months Assessment & Plan (06/25/2018 11:53 AM CDT): cdai = 28 On hcq bid and ssz 1gm bid. On 15mg mtx with folic acid 2mg due to mouth sores. Tolerating ok so far. Having increased pain in hands. Will increase to 20mg weekly. Off arava due to diarrhea and aza due to ABD pain. Does not want IV biologics. Might consider xeljanz in the future. vectra 35 in 04/06 R hand u/s showed: 1) grade 1 doppler in the wrist 2) marked synovitis in the 2nd mcp, moderate in the 3rd mcp, mild in the 4th mcp Mild increase in synovial thickening since 02/03 Labs today and f/u 1 month Assessment & Plan (04/18/2018 11:54 AM CDT): cdai = 18 On hcq bid and ssz 1gm bid. Restarted 10mg mtx with folic acid 2mg due to mouth sores. Tolerating ok so far. Will increase to 15mg weekly. Off arava due to diarrhea and aza due to ABD pain. Does not want IV biologics. Might consider xeljanz in the future. vectra 35 in 04/06 R hand u/s showed: 1) grade 1 doppler in the wrist 2) marked synovitis in the 2nd mcp, moderate in the 3rd mcp, mild in the 4th mcp Mild increase in synovial thickening since 3 Labs today and f/u 1 month and will try 20mg mtx next Assessment & Plan (03/07/2018 11:37 AM CDT): High disease activity with hcq bid and ssz 1gm bid. Off mtx due to oral ulcers. Off arava due to diarrhea and aza due to ABD pain. Labs today. Will add vectra, R hand u/s. Discussed biologics and she refuses IV meds. Might consider xeljanz though still wary. Wants to retry mtx 4 tabs per week and will start on 2mg folic acid due to past mouth sores. f/u [address] Jackson. Assessment & Plan (12/08/2017 11:01 AM BRAND ADVOCATE): Moderate disease activity with hcq bid and ssz 1gm bid. Will give this does some time to work. Consider biologics next if needed. Off mtx due to oral ulcers. Off arava due to diarrhea and aza due to ABD pain. Labs today. F/u 3 month, sooner if needed. Assessment & Plan (10/27/2017 1:56 PM BRAND ADVOCATE): Moderate disease activity with hcq bid and ssz 500mg bid. Increase ssz to 1gm in am and 500mg in pm. Off ssz, mtx due to oral ulcers. Off arava due to diarrhea and aza due to ABD pain. Labs today. F/u 1 month, sooner if needed. Assessment & Plan (09/25/2017 11:50 AM BRAND ADVOCATE): Moderate disease activity with hcq bid. Off ssz, mtx due to oral ulcers. Off arava due to diarrhea and aza due to ABD pain. Discussed starting biologics but she declines and would like to retry ssz as she does not think she had oral ulcers with the low dose. Will retry ssz 500mg daily x 2 weeks, check cbc and cmp. If normal, then increase to bid dosing. Labs today. F/u 1 month, sooner if needed. Assessment & Plan (08/11/2017 10:53 AM CDT): Moderate disease activity with hcq bid. Off ssz, mtx due to oral ulcers. Off arava due to diarrhea. Discussed starting aza. TPMT is normal. Will start aza 50mg daily. Informed of se and need for monthly labs. If having rash, ABD pain, fevers, will stop and call us. Check labs today and check cbc and cmp in 2 weeks. F/u 1 month, sooner if needed. Assessment & Plan (07/12/2017 1:54 PM CDT): Moderate disease activity with hcq bid and arava 20mg daily. Off mtx and ssz due to oral ulcers. However, getting diarrhea with arava, so will hold it. Discussed using aza next, but will give her some time to feel better without arava. Will check labs and tpmt. Discussed se of aza and the need for monthly labs. Will start aza at her next ov in one month as long as her bowels are back to normal and labs are fine. Declines steroids today to help with joints. F/u 1 month, sooner if needed. Encounter for long-term (current) use of medicat ions 07/12/2017 Overview (08/01/2019): Hepatitis neg 08/04. cxr 1 small areas of atelectasis, no change since 2012 Eye exam ok 07/08 Assessment & Plan (05/31/2024 12:55 PM CDT): Hepatitis neg 08/04. cxr 2014- scarring or atelectasis in upper lobe cxr 1 small areas of atelectasis, no change since 2012 Had eye exam in 03/12 Yearly flu shot done Has had pneumonia shots and zostavax. Has had one dose shingrix (2nd dose?) Had both doses of COVID vaccine. Recommend booster Assessment & Plan (03/01/2024 10:40 AM CDT): Hepatitis neg 08/04. cxr 2014- scarring or atelectasis in upper lobe cxr 12/08 small areas of atelectasis, no change since 2012 Had eye exam in 03/12 Yearly flu shot done Has had pneumonia shots and zostavax. Has had one dose shingrix (2nd dose?) Had both doses of COVID vaccine. Recommend booster Assessment & Plan (11/27/2023 10:32 AM BRAND ADVOCATE): Hepatitis neg 08/04. cxr 2014- scarring or atelectasis in upper lobe cxr 119 small areas of atelectasis, no change since 2012 Had eye exam in 03/12 Yearly flu shot done Has had pneumonia shots and zostavax. Has had one dose shingrix (2nd dose?) Had both doses of COVID vaccine. Recommend booster Assessment & Plan (08/24/2023 12:45 PM CDT): Hepatitis neg 08/04. cxr 2014- scarring or atelectasis in upper lobe cxr 1/19 small areas of atelectasis, no change since 2012 Had eye exam in 03/12 Yearly flu shot done Has had pneumonia shots and zostavax. Has had one dose shingrix (2nd dose?) Had both doses of COVID vaccine. Recommend booster Assessment & Plan (03/13/2023 11:03 AM CDT): Hepatitis neg 08/04. cxr 2014- scarring or atelectasis in upper lobe cxr 1/19 small areas of atelectasis, no change since 2012 Reminded of at least yearly eye exams Yearly flu shot done Has had pneumonia shots and zostavax. Has had one dose shingrix (2nd dose?) Had both doses of COVID vaccine. Recommend booster Assessment & Plan (12/12/2022 8:31 AM BRAND ADVOCATE): Hepatitis neg 08/04. cxr 2014- scarring or atelectasis in upper lobe cxr 1/19 small areas of atelectasis, no change since 2012 Reminded of at least yearly eye exams Yearly flu shot done Has had pneumonia shots and zostavax. Has had one dose shingrix (2nd dose?) Had both doses of COVID vaccine. Recommend booster Assessment & Plan (09/16/2022 10:48 AM CDT): Hepatitis neg 08/04. cxr 2014- scarring or atelectasis in upper lobe cxr 1/19 small areas of atelectasis, no change since 2012 Reminded of at least yearly eye exams Yearly flu shot done Has had pneumonia shots and zostavax. Has had one dose shingrix (2nd dose?) Had both doses of COVID vaccine. Recommend booster Assessment & Plan (05/06/2022 11:46 AM CDT): Hepatitis neg 08/04. cxr 2014- scarring or atelectasis in upper lobe cxr 1/19 small areas of atelectasis, no change since 2012 utd eye exam 02/07 Yearly flu shot advised Has had pneumonia shots and zostavax. Has had one dose shingrix (2nd dose?) Had both doses of COVID vaccine. Recommend booster Assessment & Plan (01/20/2022 12:56 PM BRAND ADVOCATE): Hepatitis neg 08/04. cxr 2014- scarring or atelectasis in upper lobe cxr 119 small areas of atelectasis, no change since 2012 utd eye exam 02/07 Yearly flu shot advised Has had pneumonia shots and zostavax. Has had one dose shingrix. Had both doses of COVID vaccine. Recommend booster Assessment & Plan (09/06/2021 2:53 PM CDT): Hepatitis neg 08/04. cxr 2014- scarring or atelectasis in upper lobe cxr 1 small areas of atelectasis, no change since 2012 utd eye exam 02/07 Yearly flu shot soon Has had pneumonia shots and zostavax. Has not had shingrix. Had both doses of COVID vaccine. Recommend booster Assessment & Plan (03/08/2021 10:52 AM CDT): Hepatitis neg 08/04. cxr 2014- scarring or atelectasis in upper lobe cxr 119 small areas of atelectasis, no change since 2012 utd eye exam 07/08 Yearly flu shot. Has had pneumonia shots and zostavax. Has not had shingrix. Had both doses of COVID vaccine. Assessment & Plan (12/07/2020 10:24 AM BRAND ADVOCATE): Hepatitis neg 08/04. cxr 2014- scarring or atelectasis in upper lobe cxr 119 small areas of atelectasis, no change since 2012 utd eye exam 07/08 Assessment & Plan (09/04/2020 5:37 PM CDT): Hepatitis neg 08/04. cxr 2014- scarring or atelectasis in upper lobe cxr 1/19 small areas of atelectasis, no change since 2012 utd eye exam 07/08 Assessment & Plan (07/03/2020 9:48 AM CDT): Hepatitis neg 08/04. cxr 2014- scarring or atelectasis in upper lobe cxr 1/19 small areas of atelectasis, no change since 2012 utd eye exam 8/19 Assessment & Plan (02/25/2020 10:10 AM CDT): Hepatitis neg 9/15. cxr 2015- scarring or atelectasis in upper lobe cxr 1/19 small areas of atelectasis, no change since 2012 utd eye exam 8/19 Assessment & Plan (11/26/2019 10:44 AM BRAND ADVOCATE): Hepatitis neg 9/15. cxr 2015- scarring or atelectasis in upper lobe cxr 1/19 small areas of atelectasis, no change since 2012 utd eye exam 8/19 Assessment & Plan (08/01/2019 10:10 AM CDT): Hepatitis neg 9/15. cxr 2015- scarring or atelectasis in upper lobe cxr 1/19 small areas of atelectasis, no change since 2012 utd eye exam 8/19 Assessment & Plan (04/26/2019 11:12 AM CDT): Hepatitis neg 9/15. cxr 2015- scarring or atelectasis in upper lobe cxr 1/19 small areas of atelectasis, no change since 2012 Assessment & Plan (01/24/2019 12:02 PM BRAND ADVOCATE): Hepatitis neg 9/15. cxr 2015- scarring or atelectasis in upper lobe cxr 1/19 small areas of atelectasis, no change since 2012 Assessment & Plan (10/23/2018 10:52 AM BRAND ADVOCATE): Hepatitis neg 9/15. cxr 2015- scarring or atelectasis in upper lobe Continue to monitor with routine labs Assessment & Plan (07/24/2018 12:41 PM CDT): Hepatitis neg 9/15. cxr 2015- scarring or atelectasis in upper lobe Continue to monitor with routine labs Assessment & Plan (06/25/2018 11:54 AM CDT): Hepatitis neg 9/15. cxr 2015- scarring or atelectasis in upper lobe Continue to monitor with routine labs Assessment & Plan (04/18/2018 11:54 AM CDT): Hepatitis neg 9/15. Continue to monitor with routine labs Discussed risks and benefits of meds today Assessment & Plan (03/07/2018 9:42 AM CDT): Hepatitis neg 9/15. Assessment & Plan (12/08/2017 10:41 AM BRAND ADVOCATE): Hepatitis neg 9/15. Assessment & Plan (10/27/2017 12:58 PM BRAND ADVOCATE): Hepatitis neg 9/15. Assessment & Plan (09/25/2017 11:42 AM BRAND ADVOCATE): Hepatitis neg 9/15. Assessment & Plan (08/11/2017 10:45 AM CDT): Hepatitis neg 9/15. Assessment & Plan (07/12/2017 1:42 PM CDT): Hepatitis neg 915. Immunizations Immunization Administration Dates Next Due Influenza, Quad, Adjuvantated, Intramuscular Influenza, Quadrivalent, Fernanda l Culture-based MDCK, Preservative Free, Antibiotic Free, Intramuscular 08/28/2019 Influenza, Trivalent, High D ose, Split, Preservative Free, Intramuscular 09/27/2018 Social History Tobacco Use Types Packs/Day Years Used Date Smoking Tobacco: Former Cigarettes 0.5 30 1 12/1987 - 10/2018 Smokeless Tobacco: Never Comments:smoked for 30 years off and on - quit cigs in 2017- smoked vapor cigs for 1 year quit them in 2018 Alcohol Use Standard Drinks/Week Comments No 0 (1 standard drink = 0.6 oz pur e alcohol) Comments Unknown Sex and Gender Information Value Date Recorded Sex Assigned at Not on file Legal Sex Female 3:46 AM BRAND ADVOCATE Gender Identity Not on file Sexual Orientation Not on file Last Filed Vital Signs Vital Sign Reading Time Taken Comments Blood Pressure 138/90 05/31/2024 10:30 AM CDT Pulse 52 05/31/2024 10:30 AM CDT Temperature 36.4 C (97.6 F) 01/20/2022 10:07 AM BRAND ADVOCATE Respiratory Rate 12 10/03/2019 10:05 AM BRAND ADVOCATE Oxygen Saturation 97% 05/31/2024 10:30 AM CDT Inhaled Oxygen Concentration - - Weight 54.4 kg (120 lb) 05/31/2024 10:30 AM CDT Height 149.9 cm (4' 11 ) 03/01/2024 10:15 AM CDT Body Mass Index 24.24 03/01/2024 10:15 AM CDT Plan of Treatment Not on file Medical Devices Implanted Type Area Automation Engineering Technician Device Identifier Shelf Expiration Date Model / Serial / Lot [employer] [id number] 2.5mm 22mm Peg Self Tap Tip Square 1.3mm Screw Bone Titanium - [id number] Implanted:Qty: 2 on 10/03/2019 by Adis Johnson MD at [facility] Screw Left: Foot [employer] [id number] / / Skye Bone Screw 14mm Implanted:Qty: 1 on 10/03/2019 by Adis Johnson MD at [facility] Left: Foot [employer] [id number] / / Description:Reference Number [id number] Skye Bone Screw Implanted:Qty: 1 on 10/03/2019 by Adis Johnson MD at [facility] Left: Foot [employer] [id number] / / Description:Reference number [id number] Insurance T MEDICARE MEDICARE COUNT INCLUDES THE [facility] Care Teams Terrazzo Mechanic Helper Relationship Specialty Start Date End Date Anthony Coffman MD [facility] [place] [address] PCP - General Family Medicine 12/12/22 Jonathan Zheng MD [address] [place] [address] Consulting Physician Rheumatology 11/27/23
--- OUTSIDE RECORDS SUMMARY | 2025-03-05 12:58 | XMS_ITS | Clinical Summary ---
Author Organization [facility] Address [facility] [address] Care Team Providers Care Occupational Therapist Per Diem Name Role Phone Juan J Stewart MD Primary Care Provider [phone] Source Comments [facility],non-owned Affiliates and Associated Physician Practices is amultiple site organization consisting of ambulatory clinics and hospital sitesin [place], [place], [place] and [place]. This disclosure is being madepursuant to the Care Everywhere program and may not contain all information available regarding this patient. Last updated 18.[facility] [employer] Social History Tobacco Use Types Packs/Day Years Used Date Smoking Tobacco: Never Assessed Comments Unknown Sex and Gender Information Value Date Recorded Sex Assigned at Not on file Legal Sex Female 2:30 PM CDT Gender Identity Not on file Sexual Orientation Not on file Plan of Treatment Health Maintenance Due Date Last Done Comments BONE DENSITY TESTING 1950 COLOGUARD (AGES 45-75) - COL ON CA SCREENING 1950 COLON MONITORING 1951 COLONOSCOPY - COLON CA SCREENING 1951 CT COLONOGRAPHY - COLON CA SCREENING 1950 Colorectal Cancer Screening 1950 FIT - COLON CA SCREENING 1950 FLEX SIG - COLON CA SCREENING 1950 LIPID TESTING 1950 MAMMOGRAM 1950 MEDICARE AWV 12 MONTHS 1950 HEPATITIS C SCREENING 03/23/1969 DTAP/TDAP/TD VACCINES (1 - Tdap) 1970 PNEUMOCOCCAL VACCINE 50+ (1 of 1 - PCV) 2001 ZOSTER VACCINE (1 of 2) 2001 COVID-19 VACCINE (2023-2 5 season) 2024 DEPRESSION SCREENING 11/20/2024 INFLUENZA VACCINE (Season Ended) 2025 Respiratory Syncytial Virus (RSV) Vaccine Pt: or over 60 yrs (1 - 1-dose 75+ series) 2026 HEPATITIS B VACCINE Aged Out No longe r eligible based on patient's age to complete this topic HIB VACCINE Aged Out No longer eligi ble based on patient's age to complete this topic HPV VACCINE Aged Out No longer eligi ble based on patient's age to complete this topic MENINGOCOCCAL (Group B) VACC INE SHARED DECISION-MAKING Aged Out No longer eligibl e based on patient's age to complete this topic MENINGOCOCCAL GROUPS A/C/Y/W VACCINE Aged Out No longer eligible b ased on patient's age to complete this topic Insurance MEDICARE Care Teams Occupational Therapist Per Diem Relationship Specialty Start Date End Date Juan J Stewart MD [address] [place] [address] PCP - General Internal Medicine 08/03/15
--- OUTSIDE RECORDS SUMMARY | 2025-03-05 12:58 | XMS_ITS | Clinical Summary ---
Author Organization [facility] Address [address] [place] [address] Phone Care Team Providers Care Documentation Lead Name Role Phone Anthony Coffman MD Primary Care Provider [phone] Jonathan Zheng MD Unavailable [phone] Allergies Active Allergy Reactions Criticality Noted Date [...] 11/27/2023 Assessment & Plan (11/27/2023 11:00 AM POLITICAL SCIENTIST): L shoulder pain intermittently. Has full range of motion on exam and neg rotator cuff testing. Discussed PT, could try in the future if worse Neck mass 12/12/2022 Assessment & Plan (12/12/2022 11:13 AM POLITICAL SCIENTIST): A 1 cm soft sq nodule rt [...] bisphosphonate) Assessment & Plan (11/27/2023 10:32 AM POLITICAL SCIENTIST): BMD 07/08: R femoral neck -2.4 L [...] 05/13 Assessment & Plan (12/12/2022 8:31 AM POLITICAL SCIENTIST): BMD 07/08: R femoral neck -2.4 L [...] 05/13 Assessment & Plan (01/20/2022 10:13 AM POLITICAL SCIENTIST): BMD 8/: R femoral neck -2.4 L [...] actonel. Assessment & Plan (12/07/2020 10:24 AM POLITICAL SCIENTIST): BMD 8: R femoral neck -2.4 L [...] vit D level drawn in [facility] [place] last month. Will look for results. Advised [...] vit D level drawn in [facility] [place] last month. Will look for results. Advised to start daily calcium/D supplement. Assessment & Plan (11/26/2019 11:21 AM POLITICAL SCIENTIST): bmd done per pcp several months and [...] months Assessment & Plan (11/27/2023 10:56 AM POLITICAL SCIENTIST): Cdai = 4 Low activity today. On [...] well clinically will continue current meds. Utd eseexxoce15 and vvxcjvu50. Pt requesting to come less often due to 1 hr commute. Phone visit was done today. will do in person visit in 3 months again. Check labs soon at local [facility]. Assessment & Plan (01/02/2023 2:53 PM POLITICAL SCIENTIST): Low cdai. On hcq bid and ssz [...] well clinically will continue current meds. Utd tlwvltijb09 and fsanhvq45. Pt requesting to come less often due [...] well clinically will continue current meds. Utd mcwjraout28 and ypuolvq06. Had both doses of shingrix? Pt requesting [...] well clinically will continue current meds. Utd ytkavqwec35 and frvzmux77. Had both doses of shingrix? Labs ordered today. Pt requesting to come less often due to 1 hr commute. If doing ok, will arrange for telehealth visit at 3 months with labs to be done at local [facility], then next in-person visit and labs in 6 months. Advised if Medicare stops allowing telehealth at some point then we will not be able to do this. Assessment & Plan (01/20/2022 12:56 PM POLITICAL SCIENTIST): cdai = 3, low Minimal activity in [...] and COVID booster, but patient declines. Utd flwdukunl85 and xdqcmti81. Recommend shingrix and patient plans to get [...] flu shot soon and COVID booster. utd cjsjiqjoa45 and . Recommend shingrix. Labs ordered today, will go [...] continue current meds. Utd flu shot. utd ocyuihjny86 and . Recommend shingrix. Labs today. F/u 3 months. Assessment & Plan (12/07/2020 10:25 AM POLITICAL SCIENTIST): cdai = , low Mild pain in [...] a later date. Utd flu shot. utd zpewyzffk65 and arjlrai84. Recommend shingrix. Labs today. F/u 3 months. [...] a later date. Utd flu shot. utd qtargheyc21 and vitfyxp17. Recommend shingrix. Labs today. F/u 3 months. [...] upcoming foot surgery. Utd flu shot. utd jxyqruzdr50 and zszuuhl42. Recommend shingrix. Labs today. F/u 2 months. [...] benefits for xeljanz/rinvoq. Utd flu shot. utd qusfpxodp49 and ohbdmat20. Recommend shingrix. Labs today. F/u 6 weeks if starting on new med. If denied or delayed may push follow up appt to 3 months. COVID-19 discussed. Assessment & Plan (11/26/2019 11:33 AM POLITICAL SCIENTIST): cdai = 10 S/p L toe surgery [...] concerned about cost. Utd flu shot. utd algoypkpg26 and ewqykau60. Recommend shingrix. Labs today. Repeat u/s in [...] f/u 3 months. Utd flu shot. utd eydpiomzb80 and dazuzvt32. Discussed Shingrix and recommended. Had BMD from [...] f/u 3 months. Utd flu shot. utd bcnpeaeav88 and fccnree31. Discussed Shingrix. Has BMD order from pcp but hasn't done it yet, encouraged to do this. Assessment & Plan (01/24/2019 12:01 PM POLITICAL SCIENTIST): cdai = 4 On hcq bid and [...] f/u 3 months. Utd flu shot. utd bykagkzte68 and ieidzpw05. Will get BMD with pcp soon. Assessment & Plan (10/23/2018 11:16 AM POLITICAL SCIENTIST): cdai = 9 On hcq bid and [...] f/u 3 months. Utd flu shot. utd nemakmrvr48 and . Assessment & Plan (07/24/2018 12:40 PM CDT): [...] Jackson. Assessment & Plan (12/08/2017 11:01 AM POLITICAL SCIENTIST): Moderate disease activity with hcq bid and ssz 1gm bid. Will give this does some time to work. Consider biologics next if needed. Off mtx due to oral ulcers. Off arava due to diarrhea and aza due to ABD pain. Labs today. F/u 3 month, sooner if needed. Assessment & Plan (10/27/2017 1:56 PM POLITICAL SCIENTIST): Moderate disease activity with hcq bid and ssz 500mg bid. Increase ssz to 1gm in am and 500mg in pm. Off ssz, mtx due to oral ulcers. Off arava due to diarrhea and aza due to ABD pain. Labs today. F/u 1 month, sooner if needed. Assessment & Plan (09/25/2017 11:50 AM POLITICAL SCIENTIST): Moderate disease activity with hcq bid. Off [...] booster Assessment & Plan (11/27/2023 10:32 AM POLITICAL SCIENTIST): Hepatitis neg 08/04. cxr 2014- scarring or [...] booster Assessment & Plan (12/12/2022 8:31 AM POLITICAL SCIENTIST): Hepatitis neg 08/04. cxr 2014- scarring or [...] booster Assessment & Plan (01/20/2022 12:56 PM POLITICAL SCIENTIST): Hepatitis neg 08/04. cxr 2014- scarring or [...] vaccine. Assessment & Plan (12/07/2020 10:24 AM POLITICAL SCIENTIST): Hepatitis neg 08/04. cxr 2014- scarring or [...] 8/19 Assessment & Plan (11/26/2019 10:44 AM POLITICAL SCIENTIST): Hepatitis neg 9/15. cxr 2015- scarring or [...] 2012 Assessment & Plan (01/24/2019 12:02 PM POLITICAL SCIENTIST): Hepatitis neg 9/15. cxr 2015- scarring or atelectasis in upper lobe cxr 1/19 small areas of atelectasis, no change since 2012 Assessment & Plan (10/23/2018 10:52 AM POLITICAL SCIENTIST): Hepatitis neg 9/15. cxr 2015- scarring or [...] 9/15. Assessment & Plan (12/08/2017 10:41 AM POLITICAL SCIENTIST): Hepatitis neg 9/15. Assessment & Plan (10/27/2017 12:58 PM POLITICAL SCIENTIST): Hepatitis neg 9/15. Assessment & Plan (09/25/2017 11:42 AM POLITICAL SCIENTIST): Hepatitis neg 9/15. Assessment & Plan (08/11/2017 10:45 AM CDT): Hepatitis neg 9/15. Assessment & Plan (07/12/2017 1:42 PM CDT): Hepatitis neg 915. Immunizations Immunization Administration Dates Next Due Influenza, Quad, Adjuvantated, Intramuscular Influenza, Quadrivalent, Fernanda l Culture-based MDCK, Preservative Free, Antibiotic Free, Intramuscular 08/28/2019 Influenza, Trivalent, High D ose, Split, Preservative Free, Intramuscular 09/27/2018 Surgical History Surgery Date Site/Laterality Comments SECTION WRIST SURGERY Right cyst removal TONSILLECTOMY BREAST SURGERY augmentin Medical History Medical History Date Comments Acquired hallux valgus of left foot Hyperlipidemia RA (rheumatoid arthritis) (HCC) bilateral hands with negative rheumatoid factor Osteoarthritis Osteoporosis Spinal stenosis Obesity (BMI 30.0-34.9) BMI 31 Hypothyroidism Pre-diabetes Family History Medical History Relation Name Comments Diabetes Other 1 Heart disease Other 2 Rheum arthritis Other 3 Other Other 4 Family history of Polycythemia rubra vera; Relation Name Status Comments Other 1 Other 2 Other 3 Other 4 Social History Tobacco Use Types Packs/Day Years [...] on file Legal Sex Female 3:46 AM POLITICAL SCIENTIST Gender Identity Not on file Sexual Orientation Not on file Obstetrics History Last Filed Vital Signs Vital Sign Reading Time Taken Comments Blood Pressure 138/90 05/31/2024 10:30 AM CDT Pulse 52 05/31/2024 10:30 AM CDT Temperature 36.4 C (97.6 F) 01/20/2022 10:07 AM POLITICAL SCIENTIST Respiratory Rate 12 10/03/2019 10:05 AM POLITICAL SCIENTIST Oxygen Saturation 97% 05/31/2024 10:30 AM CDT Inhaled Oxygen Concentration - - Weight 54.4 kg (120 lb) 05/31/2024 10:30 AM CDT Height 149.9 cm (4' 11 ) 03/01/2024 10:15 AM CDT Body Mass Index 24.24 03/01/2024 10:15 AM CDT Plan of Treatment Health Maintenance Due Date Last Done Comments Breast Cancer Screening-Mammogram 1951 Colon Cancer Screening-Colonoscopy 1950 Depression Screening 1951 Fall Risk Assessment 1950 Hepatitis C Screening 1951 DTaP/Tdap/Td Vaccine (1 - Tdap) 1962 Hepatitis B Screening 1969 Pneumococcal vaccine 65+ (1 of 1 - PCV) 2001 Zoster Vaccine (1 of 2) 2001 Well Visit 65+ 2016 Osteoporosis Screening-Bone Density Scan 05/04/2024 05/04/2022 Influenza Vaccine (#1) 2024 0, 08/28/2019, 09/27/2018, Additional history exists Medical Devices Implanted Type Area Marine Safety Officer Device Identifier Shelf Expiration Date Model / Serial / Lot [employer] [id number] 2.5mm 22mm Peg Self Tap Tip Square 1.3mm Screw Bone Titanium - [id number] Implanted:Qty: 2 on 10/03/2019 by Adis Johnson MD at [facility] Screw Left: Foot [employer] [id number] / / Skye Bone Screw 14mm Implanted:Qty: 1 on 10/03/2019 by Adis Johnson MD at [facility] Left: Foot [employer] [id number] / / Description:Reference Number [id number] Skye Bone Screw Implanted:Qty: 1 on 10/03/2019 by Adis Johnson MD at [facility] Left: Foot [employer] [id number] / / Description:Reference number [id number] Insurance [employer] MEDICARE MEDICARE [facility] Care Teams Documentation Lead Relationship Specialty Start Date End Date Anthony Coffman MD [address] [place] [address] [phone] PCP - General Family Medicine 12/12/22 Jonathan Zheng MD [address] [place] [address] Consulting Physician Rheumatology 11/27/23
--- OUTSIDE RECORDS SUMMARY | 2025-03-05 12:58 | XMS_ITS | Encounter Summary ---
Author Organization [facility] Address [address] [place] [address] Care Team Providers Care Exercise Instructor Name Role Phone Anthony Coffman MD Primary Care Provider [phone] Encounter Details Date Type Department Care Team (Late st Contact Info) Description 07/08/2024 MyChart Message Enc [facility] Medical [facility] [place] [address] [place] [address] Saurav Rojas MD [address] [place] [address] Rescheduled ankle surgery Social History Tobacco Use Types Packs/Day Years Used Date Smoking Tobacco: Former Passive Smoke Exposure: Never Smokeless Tobacco: Never Comments:na Alcohol Use Standard Drinks/Week Comments Never 0 (1 standard drink = 0.6 oz pur e alcohol) PHQ-2 Answer Date Recorded Patient Health Questionnaire-2 Score 0 06/14/2024 Comments No Sex and Gender Information Value Date Recorded Sex Assigned at Female 04/25/2022 1:20 PM CDT Legal Sex Female 7:48 PM CDT Gender Identity Female 04/25/2022 1:20 PM CDT Sexual Orientation Straight 04/25/2022 1: 20 PM CDT documented as of this encounter Plan of Treatment Upcoming Encounters Date Type Department Care Team (Late st Contact Info) Description 03/24/2025 10:40 AM CDT Office Visit [facility] - [place] [address] [place] [address] Saurav Rojas MD [address] [facility] [address] documented as of this encounter Visit Diagnoses Not on filedocumented in this encounter Care Teams Exercise Instructor Relationship Specialty Start Date End Date Anthony Coffman MD [address] [place] [id number] PCP - General FAMILY PRACTICE 01/29/24 documented as of this encounter
--- OUTSIDE RECORDS SUMMARY | 2025-03-05 12:58 | XMS_ITS | Clinical Summary ---
Author Organization [facility] Address [address] [place] [address] Care Team Providers Care Youth Advocate Name Role Phone Anthony Coffman MD Primary Care Provider [phone] Allergies Active Allergy Reactions Criticality Noted Date Comments Tape Rash Medium 10/03/2019 Medications allopurinol 300 MG tablet Take 1 tablet (300 mg total) by mouth daily. 2 Active rosuvastatin 40 MG tablet Take 1 tablet (40 mg total) by mouth nightly at bedtime. 2 Active zolpidem 10 MG tablet Take 1 tablet (10 mg total) by mouth nightly as needed for Sleep. 2 Active risedronate 150 MG tablet Take 1 tablet (150 mg total) by mouth every 30 (thirty) days. with water on empty stomach, nothing by mouth or lie down for next 30 minutes. Active levothyroxine (SYNTHROID) 75 MCG tablet Take 1 tablet (75 mcg total) by mouth daily. 4 Active oxyCODONE-aceta minophen (PERCOCET) 5-325 MG tabletIndicatio ns:Acute Pain < 7 Day Supply Take 0.5-1 tablets by mouth every 4 (four) hours as needed for Pain. Indications: Acute Pain < 7 Day Supply 18 tablet 4 Active acetaminophen CR (TYLENOL 8 HOUR ARTHRITIS PAIN) 650 MG Tab CR 8 hr tablet Active doxepin (SILENOR) 3 mg tablet Take 1 tablet (3 mg total) by mouth nightly as needed. 4 Active SANTYL ointment daily. 5 Active meloxicam (MOBIC) 15 MG tablet Active ASPIRIN LOW DOSE 81 MG tabletIndicatio ns:Post-operati ve state TAKE 1 TABLET BY MOUTH 2 TIMES A DAY FOR 74 DAYS. FOR BLOOD CLOT PREVENTION 148 tablet 5 Active Active Problems Problem Noted Date Diagnosed Date Post-operative state 10/24/2024 Localized osteoarthritis of right ankle 08/20/20 Arthritis of right ankle 06/18/2024 Encounters Date Type Department Care Team Description 01/20/2025 10:40 AM MERCHANDISING REPRESENTATIVE Office Visit [facility] Sports [facility] [address] [place] [address] Saurav Rojas MD Postop Followup (Right ankle fusion 10/24/24) 01/20/2025 Travel 01/14/2025 Orders Only [facility] Orthopedic & Sports [facility] [address] [place] [address] Saurav Rojas MD 01/08/2025 3:00 PM MERCHANDISING REPRESENTATIVE Office Visit [facility] Orthopedic [facility] Sports Medicine [facility] [address] [place] [address] Saurav Rojas MD Postop Followup (Right ankle fusion 10/24/24) 01/08/2025 Travel 12/31/2024 8:19 AM MERCHANDISING REPRESENTATIVE - 12/31/2024 11:59 PM MERCHANDISING REPRESENTATIVE Hospital Encounter [facility] [address] [place] [address] Jaskaran Beckham MD Discharge Disposition: Home or Self Care (Routine Discharge) 12/31/2024 Travel 12/25/2024 3:00 PM MERCHANDISING REPRESENTATIVE Office Visit [facility] Orth[facility] [address] [place] [address] Saurav Rojas MD Postop Followup (Right ankle) 12/25/2024 Travel 12/24/2024 8:20 AM MERCHANDISING REPRESENTATIVE - 12/24/2024 11:59 PM MERCHANDISING REPRESENTATIVE Hospital Encounter [facility] [address] [place] [address] Jaskaran Beckham MD Discharge Disposition: Home or Self Care (Routine Discharge) 12/24/2024 Travel 12/17/2024 7:54 AM MERCHANDISING REPRESENTATIVE - 12/17/2024 11:59 PM MERCHANDISING REPRESENTATIVE Hospital Encounter [facility] [address] [place] [address] Jaskaran Beckham MD Discharge Disposition: Home or Self Care (Routine Discharge) 12/17/2024 Travel 12/13/2024 9:40 AM MERCHANDISING REPRESENTATIVE Office Visit [facility] [address] [place] [address] Ray Carlos PA Postop Followup (Right Ankle Fusion 10/24/24) 12/13/2024 - 12/13/2024 11:59 PM MERCHANDISING REPRESENTATIVE Hospital Encounter [facility] [address] [place] [address] Ray Carlos PA Discharge Disposition: Home or Self Care (Routine Discharge) 12/13/2024 Travel 12/12/2024 Orders Only [facility] [address] [place] [address] Saurav Rojas MD 12/11/2024 Telephone [facility] [address] [place] [address] Saurav Rojas MD Concerns from Last 3 Months Family History Medical History Relation Comments Arthritis Mother Cancer Mother Heart Disease Mother Hypertension Mother Relation Status Comments Father Maternal Grandfather Maternal Grandmother Mother Paternal Grandfather Paternal Grandmother Social History Tobacco Use Types Packs/Day Years Used Date Smoking Tobacco: Former Cigarettes 0.5 35 1 969 - 2004 Passive Smoke Exposure: Never Smokeless Tobacco: Never Tobacco Cessation:Counseling Given: No Comments:na Alcohol Use Standard Drinks/Week Comments Never 0 (1 standard drink = 0.6 oz pur e alcohol) PHQ-2 Answer Date Recorded Patient Health Questionnaire-2 Score 0 12/02/2024 Comments No Sex and Gender Information Value Date Recorded Sex Assigned at Female 04/25/2022 1:20 PM CDT Legal Sex Female 7:48 PM CDT Gender Identity Female 04/25/2022 1:20 PM CDT Sexual Orientation Straight 04/25/2022 1: 20 PM CDT Last Filed Vital Signs Vital Sign Reading Time Taken Comments Blood Pressure 132/65 01/20/2025 10:42 AM MERCHANDISING REPRESENTATIVE Pulse 53 01/20/2025 10:42 AM MERCHANDISING REPRESENTATIVE Temperature 36.6 C (97.9 F) 01/20/2025 10:42 AM MERCHANDISING REPRESENTATIVE Respiratory Rate 18 10/25/2024 4:00 AM MERCHANDISING REPRESENTATIVE Oxygen Saturation 97% 12/13/2024 9:2 8 AM MERCHANDISING REPRESENTATIVE Inhaled Oxygen Concentration - - Weight 54.4 kg (120 lb) 01/20/2025 10:4 2 AM MERCHANDISING REPRESENTATIVE pt reported, nwb Height 149.9 cm (4' 11 ) 12/13/2024 9:2 8 AM MERCHANDISING REPRESENTATIVE Body Mass Index 24.24 12/13/2024 9:28 AM MERCHANDISING REPRESENTATIVE Plan of Treatment Upcoming Encounters Date Type Department Care Team (Late st Contact Info) Description 03/24/2025 10:40 AM CDT Office Visit [facility] [address] [place] [address] Saurav Rojas MD [address] [place] [address] Health Maintenance Due Date Last Done Comments Colorectal Cancer Screening Colonoscopy (10 Years) 1950 Hepatitis C 1969 DTaP, Tdap and Td Vaccines ( 1 - Tdap) 1970 Mammogram Screening 1991 Zoster Vaccines (1 of 2) 2001 Annual Medicare Wellness Visit 2016 Pneumococcal Vaccine: 50+ Years (1 of 1 - PCV) 2016 COVID-19 Vaccine (3 - 2023-2 5 season) 2024 02/04/2021, 01/15/2021 RSV Immunization or 60+ Years (1 - 1-dose 75+ series) 2026 Dexa Scan (General) Completed 05/04/2022 PHQ-2 (Physician Quinault) Completed 12/02/2024 Meningococcal B Vaccine Aged Out No l onger eligible based on patient's age to complete this topic Meningococcal Vaccine Aged Out No mariann nicole eligible based on patient's age to complete this topic RSV Immunizations Under 20 Months Aged Out No longer eligible b ased on patient's age to complete this topic Goals Goal Patient Goal Type Associated Problems Recent Progress Patient-Stated? Author Family - family caregiver with be involved in care transitions and discharge planning Lifestyle No Imer Sosa RN Medical Devices Implanted Type Area Nylon Operator Device Identifier Shelf Expiration Date Model / Serial / Lot Augment Bone Void Filler Implanted:Qty: 2 on 10/24/2024 by Saurav Rojas MD at [facility] Graft Right: Ankle [employer] [id number] 01/17/2027 [id number] / / [id number] Dartfire Edge Cannulated Screw Implanted:Qty: 1 on 10/24/2024 by Saurav Rojas MD at [facility] Screw Right: Ankle [employer] [id number] 03/07/2031 [id number] / / [id number] [employer] Edge Cannulated Screw Implanted:Qty: 1 on 10/24/2024 by Saurav Rojas MD at [facility] Screw Right: Ankle [employer] [id number] 04/12/2030 [id number] / / [id number] Acutrak Screw Implanted:Qty: 1 on 10/24/2024 by Saurav Rojas MD at [facility] Screw Right: Ankle [employer] [id number] / / Acutrac Screw Implanted:Qty: 1 on 10/24/2024 by Saurav Rojas MD at [facility] Screw Right: Ankle [employer] [id number] / / Acutrak Screw Implanted:Qty: 1 on 10/24/2024 by Saurav Rojas MD at [facility] Screw Right: Ankle [employer] [id number] / / 4.0 X 45mm Lag Screw Implanted:Qty: 1 on 10/24/2024 by Saurav Rojas MD at [facility] Screw Right: Ankle [employer] MSD-010-40- [id number] / / Allofiber Dbf Implanted:Qty: 1 on 10/24/2024 by Saurav Rojas MD at [facility] Right: Ankle [employer] [id number] 06/07/2027 [id number] / [id number] / 4mm Washer Implanted:Qty: 2 on 10/24/2024 by Saurav Rojas MD at [facility] Right: Ankle [employer] [id number] / / 4.0mm X 4.0mm Lag Screw Implanted:Qty: 1 on 10/24/2024 by Saurav Rojas MD at [facility] Right: Ankle MSD-010-40- [id number] / / Explanted Type Area Nylon Operator Device Identifier Shelf Expiration Date Model / Serial / Lot 4.0 X 45mm Lag Screw Explanted:Qty: 1 on 10/24/2024 by Saurav Rojas MD at [facility] Screw Right: Ankle [employer] MSD-010-40 -[id number] / / Procedures Procedure Name Priority Date/Time Associated Diagnosis Comments OXR RT FOOT M3V Routine 01/20/2025 10:38 AM MERCHANDISING REPRESENTATIVE Surgical followup OXR RT ANKLE M3V Routine 01/20/2025 10:3 8 AM MERCHANDISING REPRESENTATIVE Surgical followup OXR RT ANKLE M3V Routine 12/25/2024 3:01 PM MERCHANDISING REPRESENTATIVE Surgical followup CULTURE, WOUND, W/GRAM STAIN Routine 12/13/2024 10:00 AM MERCHANDISING REPRESENTATIVE Problem involving surgical incision BONE DENSITY/DEXA Routine 05/04/2022 12: 38 PM CDT Osteoporosis from Last 3 Months or Most Recently Relevant to Health Maintenance Results * OXR RT FOOT M3V (01/20/2025 10:38 AM MERCHANDISING REPRESENTATIVE) Anatomical Region Laterality Modality Radiographic Mariely ging Narrative 01/20/2025 11:58 AM MERCHANDISING REPRESENTATIVE PROCEDURE: OXR RT FOOT M3V VIEWS: 3 DATE: 01/20/25 CLINICAL INDICATION: FINDINGS: Instrumentation of the tibiotalar joint is visible especially on the lateral view. Anterograde and retrograde screws present at the first TMT joint. Significant degenerative changes of the first metatarsophalangeal joint. IMPRESSION: Postsurgical changes involving midfoot and ankle joint fusion. us Saurav Rojas MD GENERAL IMAGING Final Result * OXR RT ANKLE M3V (01/20/2025 10:38 AM MERCHANDISING REPRESENTATIVE) Only the most recent of2 resultswithin the time period is included. Anatomical Region Laterality Modality Radiographic Mariely ging Narrative 01/20/2025 11:57 AM MERCHANDISING REPRESENTATIVE PROCEDURE: OXR RT ANKLE M3V VIEWS: 3 DATE: 01/20/25 CLINICAL INDICATION: FINDINGS: Multiple screws extending across the tibiotalar joint. There appears to be bony healing on the AP and lateral views. 2 screws extending from the lateral distal fibula across into the distal tibia and talus. 2 fully threaded screws also present at the first TMT joint on the lateral view. IMPRESSION: Postsurgical changes consistent with the tibiotalar joint fusion and midfoot fusion. us Saurav Rojas MD GENERAL IMAGING Final Result * CULTURE, WOUND, W/GRAM STAIN (12/13/2024 10:00 AM MERCHANDISING REPRESENTATIVE) SPEC DESCRIPTION ANKLE,RIGHT 12/13/2024 7:14 PM MERCHANDISING REPRESENTATIVE [facility] SPECIAL REQUESTS NO SPECIAL REQUEST 12/13/2024 7:14 PM MERCHANDISING REPRESENTATIVE [facility] GRAM STAIN RESULT RARE DEGENERATED NEUTROPHILS 12/14/2024 2:19 AM [facility] GRAM STAIN RESULT NO ORGANISMS SEEN 12/14/2024 2:19 AM [facility] CULTURE RESULT MODERATE STAPHYLOCOCCUS AUREUS 12/16/2024 8:05 AM [facility] ANKLE REGION STRUCTURE / Unknown 12/13/2024 10:00 AM MERCHANDISING REPRESENTATIVE 12/13/2024 9:52 PM MERCHANDISING REPRESENTATIVE Narrative Organism Antibiotic Method Susceptibility Staphylococcus aureus CLINDAMYCIN MELISSA (VITEK) Sensitive Staphylococcus aureus ERYTHROMYCIN MELISSA (VITEK) Sensitive Staphylococcus aureus GENTAMICIN MELISSA (VITEK) Sensitive Staphylococcus aureus OXACILLIN MELISSA (VITEK) Sensitive Staphylococcus aureus PENICILLIN G MELISSA (VITEK) Resistant Staphylococcus aureus RIFAMPIN MELISSA (VITEK) Sensitive Staphylococcus aureus TRIMETH-SULFAMETH. MELISSA (VITEK) Sensitive Staphylococcus aureus TETRACYCLINE MELISSA (VITEK) Sensitive Staphylococcus aureus TIGECYCLINE MELISSA (VITEK) Sensitive Staphylococcus aureus VANCOMYCIN MELISSA (VITEK) Sensitive Ray DAY MICROBIOLOGY - GENERAL ORDERABLE S Final Result [facility] [address] [place] [address], [id number] * BONE DENSITY/DEXA (05/04/2022 12:38 PM CDT) Anatomical Region Laterality Modality Bone Bone Density 05/04/2022 1:03 PM CDT Impressions 05/04/2022 1:11 PM CDT IMPRESSION: Bone mineralization at left femoral neck in the very osteopenic range. Suspect degenerative and hypertrophic change in lumbar spine falsely elevates measured bone mineralization there. Continued therapy with recheck study in one to two years suggested. Ordered By: ESTRADA PACHECO Interpreted By: Rio Tse, 05/04/2022 1:03 PM Narrative 05/04/2022 1:11 PM CDT DEXA BONE DENSITOMETRY SCAN 05/04/2022 HISTORY: 72-year-old postmenopausal white female. Patient is on therapy for osteoporosis. FINDINGS: Dual-energy x-ray absorptiometry of lumbar spine and left femoral neck obtained. At L2-L4: BMD 0.968 gm/sq cm, T score -1.0, lower limit of young adult female normal range, very low present fracture risk. At left femoral neck: BMD 0.594 gm/sq cm, T score -2.3, very osteopenic range, low present fracture risk. Procedure Note Rio Tse MD - 05/04/2022 DEXA BONE DENSITOMETRY SCAN 05/04/2022 HISTORY: 72-year-old postmenopausal white female. Patient is on therapyfor osteoporosis. FINDINGS: Dual-energy x-ray absorptiometry of lumbar spine and leftfemoral neck obtained. At L2-L4: BMD 0.968 gm/sq cm, T score -1.0, lower limit of young adultfemale normal range, very low present fracture risk. At left femoral neck: BMD 0.594 gm/sq cm, T score -2.3, very osteopenicrange, low present fracture risk. IMPRESSION: Bone mineralization at left femoral neck in the veryosteopenic range. Suspect degenerative and hypertrophic change in lumbarspine falsely elevates measured bone mineralization there. Continued therapy with recheck study in one to two years suggested. Ordered By: ESTRADA PACHECO Interpreted By: Rio Tse, 05/04/2022 1:03 PM Estrada Pacheco PA-C DEXA Final Re sult from Last 3 Months or Most Recently Relevant to Health Maintenance Insurance [employer] Advance Directives * Full Code (Latest Code Status on File) Date Activated Date Inactivated Comments 10/25/2024 12:13 AM 10/25/2024 6:37 PM Care Teams Youth Advocate Relationship Specialty Start Date End Date Anthony Coffman MD [address] [place] [id number] PCP - General FAMILY PRACTICE 01/29/24
== END 2025-03-05 11:36 | disposition home or self-care (01) ==
PROVIDERS: PCP Nurse Practitioner Family; Visit Provider Nurse Practitioner Family
DX: Z12.31 Encounter for screening mammogram for malignant neoplasm of breast (principal); Z78.0 Asymptomatic menopausal state; M85.89 Other specified disorders of bone density and structure, multiple sites; M81.0 Age-related osteoporosis without current pathological fracture
CPT/HCPCS: 77063; 77067; 77080